=== PATIENT | female | born 1945 | race African-American/Black ===

== ENCOUNTER 2020-06-10 12:56 | Outpatient (REF) | payer OTHER, SELFPAY ==
[2020-06-17 15:23] LABS: HPV 16 RNA NOT DETECTED (NOT DETECTED); HPV mRNA E6/E7 rflx Detected (Not Detected)
== END 2020-06-10 12:57 | disposition home or self-care (01) ==
LOC: HO.LAB 12:56
PROVIDERS: PCP Family Medicine; Visit Provider Obstetrics & Gynecology
DX: Z01.419 Encounter for gynecological examination (general) (routine) without abnormal findings (principal); R87.610 Atypical squamous cells of undetermined significance on cytologic smear of cervix (ASC-US); R87.810 Cervical high risk human papillomavirus (HPV) DNA test positive; F17.210 Nicotine dependence, cigarettes, uncomplicated; Z11.51 Encounter for screening for human papillomavirus (HPV)
CPT/HCPCS: 87624; 87625; 88141; 88142

== ENCOUNTER → 2020-07-12 13:11 | Outpatient (REF) | payer OTHER, SELFPAY ==
--- NOTE | 2020-07-12 13:00 | CA_ITS ---
Transthoracic Echocardiogram Patient (Last, First, Middle): Joceline Hogue, Gender: Female Date of : 1945 Age: 74 Procedure Date: 07/12/2020 Procedure Type: Transthoracic Echocardiogram Location: OP Height: 160.02 cm Weight: 63.5 kg BSA: 1.66 m2 Heart Rate: bpm BP: 143 / 80 mmHg Pharmaceutical Physician: PJ Referring MD: Michael Baltazar MD College Archivist: Joe Ayala MD Symptoms: I25.10 ASCDM [id number] Z95.5 STENTED COR ART I10 HTN Study Quality: Good ECG Rhythm: Sinus Conclusions: - 1. Normal LV systolic function with impaired relaxation filling pattern with inferior inferoseptal wall motion abnormality 2. Normal cardiac valvular Doppler 3. Normal RV systolic pressure 4. No pericardial effusion Findings Left Ventricle Normal left ventricular size, thickness, and systolic function. The visually estimated ejection fraction is between 60-65%. Spectral Doppler is indicative of an impaired relaxation filling pattern. E/E prime ratio is between 8 and 15 consistent with indeterminate filling pressures. Wall Motion Rest Echo Findings The basal inferior and basal inferoseptal segments are hypokinetic. All other scored wall segments showed normal motion. Right Ventricle Normal right ventricular cavity size and systolic function. Atria Both atria are normal in size. There is no evidence of interatrial shunt. Aortic Valve There is mild calcification of the aortic valve. There is no aortic valve stenosis. There is no aortic valve regurgitation. Mitral Valve Normal mitral valve structure and function. The posterior mitral leaflet has restricted mobility. There is trace mitral valve regurgitation. There is no mitral valve stenosis. Pulmonic Valve The pulmonic valve was not well visualized. Tricuspid Valve Likely normal tricuspid valve structure and function. There is trace tricuspid valve regurgitation. The right ventricular systolic pressure is normal. The right ventricular systolic pressure is 18 mmHg. Normal right atrial pressure. There is no evidence of pulmonary hypertension. Great Vessels All visible segments of the aorta are normal in size. The pulmonary artery was not well visualized. Venous The inferior vena cava is normal in size and collapses greater than 50% with inspiration. Pericardium/Pleural There is no evidence of pericardial effusion. Prior Study Comparison Changes noted compared to prior study dated: 01/14/2019. Inferior wall motion abnormality noted Measurements 2D Linear Measurements IVSd: 1.30 0.6-0.9/0.6-1.0 cm LVIDd: 4.37 3.9-5.3/4.2-5.9 cm LVIDd Index: 2.63 2.4-3.2/2.2-3.1 cm/m2 LVIDs: 2.93 2.0-3.6 cm LVPWd: 1.17 0.7-1.1 cm Ao Root: 3.10 2.1-3.5 cm LA Diam: 3.50 2.7-3.8/3.0-4.0 cm LAIDs Index: 2.11 1.5-2.3 cm/m2 LV Mass: 246.02 67-162/88-224 g LV Mass Index: 148.21 43-95/49-115 g/m2 LVOT Diam: 2.10 3.0+(-)1.3 cm 2D Systolic Function EF 4C: 66.80 >55% EF 2C: 54.60 >55% EF BiP: 60.90 >55% Mitral Valve MV Pk E: 0.64 MV PK A: 1.13 MV Decel Time: 278.00 E/A: 0.60 E'Lateral: 7.25 E'Medial: 5.13 E/E' Med: 12.50 E/E' Lat: 8.80 PHT: 81.00 MVA PHT: 2.72 Decel [place]: 2.30 Aortic Valve AoV Pk Yovany: 1.25 AoV Pk Grad: 6.00 LVOT LVOT Pk Yovany: 1.02 LVOT Mn Yov[place]: 0.71 LVOT VTI: 0.25 LVOT Pk Grad: 4.00 LVOT Mn Grad: 2.00 LVOT Diam: 2.10 LVOT Area: 3.46 Diastolic Function MV Pk E: 0.64 MV Pk A: 1.13 E/A: 0.60 E'Medial: 5.13 E/E' Med: 12.50 E' Laterial: 7.25 E/E' Lat: 8.80 Tricuspid Valve TR Pk Yovany: 1.91 TR Pk Grad: 15.00 RA Press: 3.00 RVSP: 18.00 Great Vessels Aorta Ao Root-2D: 3.10 2.0-3.7 cm Ao Asc: 3.50 2.1-3.4 cm Updated in Other Vendor System with Status of Final Joe Jamie MD electronically signed on 07/13/2020 9:30:58 AM with status of Final
== END ==
LOC: HO.CARD 13:11
PROVIDERS: PCP Family Medicine; Visit Provider Internal Medicine
DX: I25.10 Atherosclerotic heart disease of native coronary artery without angina pectoris (principal); I21.19 ST elevation (STEMI) myocardial infarction involving other coronary artery of inferior wall; I10 Essential (primary) hypertension; Z95.5 Presence of coronary angioplasty implant and graft
CPT/HCPCS: 93306

== ENCOUNTER → 2020-07-27 12:46 | Outpatient (BNVA) | payer OTHER, SELFPAY | PROVIDERS: PCP Family Medicine; Visit Provider Internal Medicine | DX: I25.10 Atherosclerotic heart disease of native coronary artery without angina pectoris (principal); I25.2 Old myocardial infarction; I10 Essential (primary) hypertension; E78.5 Hyperlipidemia, unspecified; E11.8 Type 2 diabetes mellitus with unspecified complications | CPT/HCPCS: 93005; 99212 ==

== ENCOUNTER 2020-08-31 13:35 | Outpatient (REF) | payer MEDICARE, SELFPAY ==
--- NOTE | ~2020-08-31 | MM_ITS ---
EXAMINATION: MM SCREENING DIGITAL BREAST TOMOSYNTHESIS, BILATERAL CLINICAL INFORMATION: Screening. Asymptomatic. The lifetime risk of breast cancer based on the Tyrer-Cuzick Model is 2.5%. COMPARISON: Mammography: August 27, 2018 and studies dating back to January 19, 2011 TECHNIQUE: Digital breast tomosynthesis is performed in both the craniocaudal and mediolateral oblique views along with computer-aided detection (CAD). Synthesized 2D images are generated from the tomosynthesis. FINDINGS: There are scattered areas of fibroglandular density (ACR BI-RADS breast composition Category b). There are no significant masses, abnormal calcifications, or other abnormalities. MM/MM tomosynthesis screening BI IMPRESSION: There are no significant changes from prior study. ASSESSMENT: BI-RADS 1: Negative RECOMMENDATION: Routine annual mammography screening. This patient's information was entered into a reminder system with a target due date for their next mammogram.
--- NOTE | ~2020-08-31 | MM_ITS ---
EXAMINATION: BONE DENSITOMETRY CLINICAL INDICATION: Other specified personal risk factors, not otherwise classified. Screening for osteoporosis. COMPARISON: None (current study represents initial baseline exam). TECHNIQUE: Using a Qoture DXA System (software version: 13.1) manufactured by [employer], dual-energy x-ray absorptiometry was performed of the lumbar spine and left hip. The images are of good technical quality. Summary results are attached. FINDINGS: AP SPINE L1-L3 (excluding L4): The data of L1-L4 has been changed to exclude the L4 vertebral body, because probable degenerative changes at this level may cause overestimation of lumbar spine density. BMD 0.944 g/cm2, Z-score -0.2, T-score -1.9, osteopenia. LEFT FEMUR, NECK: BMD 0.947 g/cm2, Z-score 1.2, T-score -0.7, normal. LEFT FEMUR, TOTAL: BMD 0.939 g/cm2, Z-score 1.1, T-score -0.5, normal. IDENTIFIED RISK FACTORS: Menopause, tobacco use (current smoker). HISTORY OF FRACTURE: None listed. MEDICATIONS: None listed. MM/XR DEXA axial skeleton IMPRESSION: 1. DIAGNOSIS: Osteopenia based on the lowest T-score value of -1.9 in the lumbar spine applying World Health Organization criteria. 2. 10-YEAR FRACTURE RISK PREDICTION, FRAX: Major osteoporotic fracture (clinical spine, forearm, hip or shoulder) 5.0%. Hip fracture 0.9%. 3. Treatment Recommendations: NOF guidelines recommend consideration for treatment in postmenopausal women and men age 50 and older presenting with the following: -A hip or vertebral (clinical or morphometric) fracture. -T-score less than or equal to -2.5 at the femoral neck or spine after appropriate evaluation to exclude secondary causes. -Low bone mass at the hip or spine and a 10-year fracture probability by FRAX of greater than or equal to 3% for hip fracture or greater than or equal to 20% for major osteoporotic fracture based on the [place] adapted WHO algorithm. 4. Other Recommendations: All treatment decisions require clinical judgment and consideration of individual patient factors, including patient preferences, comorbidities, previous drug use, risk factors not captured in the FRAX model (e.g. frailty, falls, vitamin D deficiency, increased bone turnover, interval significant decline in bone density) and possible under or overestimation of fracture risk by FRAX. Additional medical evaluation for secondary cause of low bone mineral density may be appropriate. FUTURE SCAN RECOMMENDATION: People with diagnosed cases of osteoporosis or at high risk for fracture should have regular bone mineral density tests. For patients eligible for Medicare, routine testing is allowed once every 2 years. The testing frequency can be increased to one year for patients who have rapidly progressing disease, those who are receiving or discontinuing medical therapy to restore bone mass, or have additional risk factors.
== END 2020-08-31 13:36 | disposition home or self-care (01) ==
LOC: HO.MAMMO 13:35
PROVIDERS: Visit Provider Obstetrics & Gynecology
DX: Z13.820 Encounter for screening for osteoporosis (principal); Z78.0 Asymptomatic menopausal state; F17.200 Nicotine dependence, unspecified, uncomplicated; Z91.89 Other specified personal risk factors, not elsewhere classified; Z12.31 Encounter for screening mammogram for malignant neoplasm of breast
CPT/HCPCS: 77063; 77067; 77080

== ENCOUNTER → 2021-06-12 14:03 | Outpatient (BNVA) | payer MEDICARE, SELFPAY | PROVIDERS: Visit Provider Advanced Practice Midwife | DX: Z12.31 Encounter for screening mammogram for malignant neoplasm of breast (principal); Z12.11 Encounter for screening for malignant neoplasm of colon; Z91.89 Other specified personal risk factors, not elsewhere classified ==

== ENCOUNTER → 2021-07-27 12:53 | Outpatient (BNVA) | payer MEDICARE, SELFPAY | PROVIDERS: PCP Family Medicine; Referring Provider Family Medicine; Visit Provider Internal Medicine | DX: I25.10 Atherosclerotic heart disease of native coronary artery without angina pectoris (principal); I25.2 Old myocardial infarction; E11.8 Type 2 diabetes mellitus with unspecified complications; I10 Essential (primary) hypertension; E78.5 Hyperlipidemia, unspecified | CPT/HCPCS: 93005; 99212 ==

== ENCOUNTER 2022-02-19 13:44 | Outpatient (REF) | payer MEDICARE, SELFPAY ==
[2022-02-20 10:12] LABS: BV Int Neg Control Negative (Negative); BV Int Pos Control Positive (Positive)
== END 2022-02-19 13:45 | disposition home or self-care (01) ==
LOC: HO.LAB 13:44
PROVIDERS: Visit Provider Advanced Practice Midwife
DX: N89.8 Other specified noninflammatory disorders of vagina (principal)
CPT/HCPCS: 87480; 87510; 87660

== ENCOUNTER 2022-03-07 12:44 | Outpatient (REF) | payer MEDICARE, SELFPAY ==
--- NOTE | ~2022-03-07 | MM_ITS ---
EXAMINATION: MM SCREENING DIGITAL BREAST TOMOSYNTHESIS, BILATERAL CLINICAL INFORMATION: Screening. Asymptomatic. The lifetime risk of breast cancer based on the Tyrer-Cuzick Model is 2%. COMPARISON: Mammography: 08/31/2020, 08/27/2018, 10/10/2016 TECHNIQUE: Digital breast tomosynthesis is performed in both the craniocaudal and mediolateral oblique views along with computer-aided detection (CAD). Synthesized 2D images are generated from the tomosynthesis. FINDINGS: There are scattered areas of fibroglandular density (ACR BI-RADS breast composition Category b). There are no significant masses, abnormal calcifications, or other abnormalities. Parenchymal pattern is similar to prior studies. There is no developing density or architectural abnormality. The axilla and skin contours are unremarkable. No significant changes. MM/MM tomosynthesis screening BI IMPRESSION: No mammographic evidence of malignancy. ASSESSMENT: BI-RADS 1: Negative RECOMMENDATION: Routine annual mammography screening. This patient's information was entered into a reminder system with a target due date for their next mammogram.
== END 2022-03-07 12:45 | disposition home or self-care (01) ==
LOC: HO.MAMMO 12:44
PROVIDERS: PCP Family Medicine; Visit Provider Advanced Practice Midwife
DX: Z12.31 Encounter for screening mammogram for malignant neoplasm of breast (principal)
CPT/HCPCS: 77063; 77067

== ENCOUNTER → 2022-07-26 13:28 | Outpatient (BNVA) | payer MEDICARE, SELFPAY | PROVIDERS: PCP Family Medicine; Visit Provider Internal Medicine | DX: I25.10 Atherosclerotic heart disease of native coronary artery without angina pectoris (principal); I25.2 Old myocardial infarction; I10 Essential (primary) hypertension; E78.5 Hyperlipidemia, unspecified; E11.8 Type 2 diabetes mellitus with unspecified complications; F17.200 Nicotine dependence, unspecified, uncomplicated; Z71.6 Tobacco abuse counseling | CPT/HCPCS: 93005; 99212 ==

== ENCOUNTER 2023-01-11 08:56 | Outpatient (REF) | payer MEDICARE, SELFPAY ==
[2023-01-11 11:25] LABS: MANUAL DIFF FLAG NO
[2023-01-11 11:41] LABS: Basophils Absolute Auto 0.1 X10*3/uL (0.0-0.2); Basophils Percent Auto 0.7 % (0-2); Eosinophils Absolute Auto 0.3 X10*3/uL (0.0-0.4); Eosinophils Percent Auto 4.1 % (0-4); Hematocrit 42.8 % (37.0-47.0); Hemoglobin 13.2 g/dl (12.0-16.0); Imm Gran Abs Auto 0.02 X10*3/uL (0.00-0.03); Imm Gran Pct Auto 0.2 % (0.0-0.4); Lymphocytes Absolute Auto 1.9 X10*3/uL (1.2-4.9); Lymphocytes Percent Auto 22.2 % (20-40); Mean Corpuscular HGB Conc 30.8 g/dl (31.0-35.0); Mean Corpuscular Hemoglobin 26.8 pg (27.0-33.0); Mean Corpuscular Volume 86.8 fL (80.0-98.0); Mean Platelet Volume 10.7 fL (9.4-12.3); Monocytes Absolute Auto 0.6 X10*3/uL (0.1-1.2); Monocytes Percent Auto 7.1 % (2-11); Neutrophils Absolute Auto 5.5 x10*3/uL (2.0-8.3); Neutrophils Percent Auto 65.7 % (45-73); Platelet Count 226 X10*3/uL (160-400); Red Blood Count 4.93 X10*6/uL (4.20-5.50); Red Cell Distribution Width 13.3 % (11.0-16.0); White Blood Count 8.4 X10*3/uL (4.8-10.8)
[2023-01-11 12:05] LABS: Creatinine Urine 42.19 mg/dL; Microalbum/Creatinine Ratio Ur 130.3 ug/mg cr
[2023-01-11 12:52] LABS: Cholesterol 95 mg/dL; HDL Cholesterol 32 mg/dL; LDL Cholesterol Calculated 39 mg/dl; Triglycerides 124 mg/dL
[2023-01-11 13:05] LABS: Alanine Aminotransferase 16 U/L (0-31); Albumin Level 3.7 g/dL (3.5-5.0); Alkaline Phosphatase 64 U/L (39-117); Anion Gap 11 (12-20); Aspartate Amino Transferase 18 U/L (5-31); Bilirubin Total 0.5 mg/dL (0.0-1.0); Blood Urea Nitrogen 14 mg/dL (9-16); Calcium 9.5 mg/dL (8.4-10.2); Carbon Dioxide 27 mmol/L (22-29); Chloride 106 mmol/L (96-108); Estimated Glomerular Filt Rate > 60; Folate 11.9 ng/mL (> or = 4.0); Glucose Random 157 mg/dL (60-115); Potassium 3.9 mmol/L (3.3-5.1); Sodium 140 mmol/L (135-145); Total Protein 7.2 g/dL (6.5-8.0); Vitamin B12 322 pg/mL (200-900)
[2023-01-11 13:08] LABS: TSH reflex Free T4 1.04 uIU/mL (0.32-4.0)
[2023-01-11 13:43] LABS: Reflex LDLD? No
== END 2023-01-11 08:57 | disposition home or self-care (01) ==
LOC: HO.HHCL 08:56
PROVIDERS: Visit Provider Family Medicine
DX: Z00.00 Encounter for general adult medical examination without abnormal findings (principal); I25.2 Old myocardial infarction; E78.5 Hyperlipidemia, unspecified; E11.65 Type 2 diabetes mellitus with hyperglycemia
CPT/HCPCS: 36415; 80053; 80061; 82043; 82607; 82746; 84443; 85025

== ENCOUNTER 2023-07-25 13:25 | Outpatient (AMB) | payer MEDICARE, SELFPAY ==
--- NOTE | 2023-07-25 13:32 | MHC.OFFVIS ---
Intake Vital Signs 07/25/23 13:35 Height 5 ft 3 in Weight 149 lb 14.629 oz BMI 26.6 BP 146/70 H Blood Pressure Location Lt brachial Position Sitting Pulse 55 Intake Visit Reasons: 1 yr f.up Intake Note: 1 year follow up w/ EKG Messenger Floorperson Required: Yes Messenger Floorperson Language: Tool Room Gear Machine Operator Name: Missy Schaeffer235 Accompanied by: Self / Same As Patient Allergies No Known Allergies Allergy (Verified 07/25/23 13:34) Medication List - Last Reconciled 07/25/23 by Michael Baltazar MD alendronate 70 mg PO QWEEK amlodipine 10 mg PO DAILY aspirin 81 mg PO DAILY cetirizine 5 mg PO DAILY PRN clonidine HCl 0.2 mg PO BID gabapentin 300 mg PO BEDTIME glipizide ER 10 mg PO DAILY lisinopril 40 mg PO DAILY meloxicam 7.5 mg PO DAILY PRN metformin 1,000 mg PO BID metoprolol tartrate 50 mg PO BID rosuvastatin 20 mg PO DAILY HPI HPI Comments History of Present Illness Details Joceline returns for follow-up regarding coronary disease. She has a long history of coronary disease and in 2005, she was admitted to [facility] with inferior STEMI. Underwent right coronary artery stenting. She also had some disease in circumflex. Generally, she is doing fine. No complaints like angina or shortness of breath or in fact anything cardiac sounding. Blood pressure seems to be on higher side. 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 Mother No problems noted. Social History Household Members: None Housing: House Alcohol intake: never Patient Tobacco Use Status: Current everyday Tobacco user Cigarettes Per Day: 3 Years Smoked: 10 +/- Sexual orientation: Straight/Heterosexual Gender identity: Female Female Reproductive History Menstrual Age of Menarche: 13 Review of Systems Const Denies weakness ENT Denies dizziness Card Denies chest pain, Denies chest pain with activity, Denies syncope, Denies rapid heart rate, Denies pedal edema, Denies edema, Denies leg edema, Denies lightheadedness, Denies palpitations, Denies dyspnea, Denies dyspnea on exertion and Denies orthopnea Resp Denies cough, Denies dyspnea and Denies dyspnea on exertion GI Denies hematochezia and Denies change in stool character Musc Denies abnormal gait, Denies muscle cramps, Denies muscle weakness, Denies numbness, Denies radiating pain into limb and Denies tingling Neuro Denies abnormal gait, Denies dizziness, Denies syncope, Denies numbness, Denies tingling and Denies weakness Endo Denies palpitations Physical Exam Vital Signs: Last Vital Signs Pulse 55 07/25/23 13:35 BP 146/70 H 07/25/23 13:35 BMI result Body Mass Index 26.6 Const General: comfortable and no acute distress Orientation/consciousness: patient oriented x3 HEENT Other: Unremarkable Head: Yes normal to inspection Neck Neck: Yes normal visual inspection Chest Chest palpation & inspection: normal inspection of the chest Resp Auscultation: clear to auscultation bilaterally Cardio Palpation: normal PMI Heart sounds: S1 normal heart sound present, S2 normal heart sound present, no gallops, no murmurs and no rubs GI Palpation (GI): Soft to palpation Back/Spine/Pelvis Other: unremarkable Skin General skin exam: no rashes or lesions noted Neuro General: patient oriented x3 Extrem General: Yes normal to inspection Psych Mental Status: mental status grossly normal Office Procedures EKG Details: EKG with sinus bradycardia 55/Min; left ventricular hypertrophy by voltage criteria; leftward axis; T inversions inferior leads[place]. [id number], Complete Assessment & Plan Assessment & Plan (1) Atherosclerotic cardiovascular disease: Code(s): I25.10 - Atherosclerotic heart disease of [place] coronary artery without angina pectoris Plan: Stable. No angina. Continue long-term aspirin, beta-blockers and statins. (2) History of inferior wall myocardial infarction: Code(s): I25.2 - Old myocardial infarction Plan: No recent issues. In the last echocardiogram from 2020, preserved LVEF with basal inferior/inferoseptal hypokinesis. (3) Type 2 diabetes mellitus with unspecified complications: Code(s): E11.8 - Type 2 diabetes mellitus with unspecified complications Plan: On glipizide, metformin. (4) Essential hypertension: Code(s): I10 - Essential (primary) hypertension Plan: On amlodipine, lisinopril, metoprolol. Blood pressure is on the higher side. We can add hydrochlorothiazide. Check labs few days after starting the medication. Discussed with patient about that. (5) Other and unspecified hyperlipidemia: Code(s): E78.5 - Hyperlipidemia, unspecified Plan: Most recent LDL 39 mg/dL. Triglycerides 125 mg/dL. On statins. Orders: Orders Basic Metabolic Panel Today I10 - Essential (primary) hypertension Medications: New hydrochlorothiazide 25 mg PO DAILY 90 tabs 3RF Coding Level of Care Code Est Pt Level 4 (77160) Diagnoses Atherosclerotic cardiovascular disease I25.10 History of inferior wall myocardial infarction I25.2 Type 2 diabetes mellitus with unspecified complications E11.8 Essential hypertension I10 Other and unspecified hyperlipidemia E78.5 CPT Codes EKG - CPT: 94791-[id number], Complete ([id number])
[2023-07-25 13:35] VITALS: BP 146/70; PULSE 55; BMI 26.6
== END 2023-07-25 13:54 | disposition home or self-care (01) ==
PROVIDERS: Visit Provider Internal Medicine
DX: I25.10 Atherosclerotic heart disease of native coronary artery without angina pectoris (principal); I25.2 Old myocardial infarction; E11.8 Type 2 diabetes mellitus with unspecified complications; I10 Essential (primary) hypertension; E78.5 Hyperlipidemia, unspecified
CPT/HCPCS: 93010; 99214

== ENCOUNTER → 2023-07-25 13:25 | Outpatient (BNVA) | payer MEDICARE, SELFPAY | PROVIDERS: Visit Provider Internal Medicine | DX: I25.10 Atherosclerotic heart disease of native coronary artery without angina pectoris (principal); I25.2 Old myocardial infarction; I10 Essential (primary) hypertension; E11.8 Type 2 diabetes mellitus with unspecified complications; E78.5 Hyperlipidemia, unspecified | CPT/HCPCS: 93005; 99212 ==

== ENCOUNTER 2023-11-13 12:56 | Outpatient (REF) | payer OTHER, SELFPAY | END 2023-11-13 12:57 | disposition home or self-care (01) | LOC: HO.MAMMO 12:56 | PROVIDERS: PCP Family Medicine; Visit Provider Family Medicine | DX: Z12.31 Encounter for screening mammogram for malignant neoplasm of breast (principal) | CPT/HCPCS: 77063; 77067 ==

== ENCOUNTER → 2023-11-13 13:00 | Outpatient (BNV) | payer OTHER, SELFPAY | PROVIDERS: PCP Family Medicine; Visit Provider Radiology Diagnostic Radiology | DX: Z12.31 Encounter for screening mammogram for malignant neoplasm of breast (principal) | CPT/HCPCS: 77063; 77067 ==

== ENCOUNTER 2024-02-03 11:41 | Outpatient (REF) | payer OTHER, SELFPAY ==
[2024-02-03 13:48] LABS: Alanine Aminotransferase 17 U/L (0-31); Albumin Level 4.2 g/dL (3.5-5.0); Alkaline Phosphatase 72 U/L (39-117); Anion Gap 11 (12-20); Aspartate Amino Transferase 20 U/L (5-31); Bilirubin Total 0.2 mg/dL (0.0-1.0); Blood Urea Nitrogen 20 mg/dL (9-16); Calcium 9.3 mg/dL (8.4-10.2); Carbon Dioxide 27 mmol/L (22-29); Chloride 103 mmol/L (96-108); Cholesterol 92 mg/dL (<200); Estimated Glomerular Filt Rate > 60; Glucose Random 161 mg/dL (60-115); HDL Cholesterol 29 mg/dL (>40); LDL Cholesterol Calculated 24 mg/dL (<100); Potassium 3.8 mmol/L (3.3-5.1); Sodium 137 mmol/L (135-145); Total Protein 7.6 g/dL (6.5-8.0); Triglycerides 196 mg/dL (<150)
[2024-02-03 13:59] LABS: Creatinine Urine 46.97 mg/dL; Microalbum/Creatinine Ratio Ur 36.1 ug/mg cr (<30)
[2024-02-03 14:06] LABS: TSH reflex Free T4 1.09 uIU/mL (0.32-4.0)
[2024-02-03 14:09] LABS: Vitamin B12 339 pg/mL (200-900)
[2024-02-03 14:20] LABS: Reflex LDLD? No
== END 2024-02-03 11:42 | disposition home or self-care (01) ==
LOC: HO.HHCL 11:41
PROVIDERS: Visit Provider Family Medicine
DX: E11.65 Type 2 diabetes mellitus with hyperglycemia (principal); I10 Essential (primary) hypertension
CPT/HCPCS: 36415; 80053; 80061; 82043; 82570; 82607; 82746; 84443

== ENCOUNTER 2024-06-29 14:01 | Outpatient (REF) | payer OTHER, SELFPAY ==
[2024-06-29 16:32] LABS: Alanine Aminotransferase 13 U/L (0-31); Alkaline Phosphatase 79 U/L (39-117); Anion Gap 10 (12-20); Aspartate Amino Transferase 23 U/L (5-31); Bilirubin Total 0.2 mg/dL (0.0-1.0); Blood Urea Nitrogen 16 mg/dL (9-16); Calcium 9.1 mg/dL (8.4-10.2); Carbon Dioxide 29 mmol/L (22-29); Chloride 105 mmol/L (96-108); Cholesterol 95 mg/dL (<200); Estimated Glomerular Filt Rate > 60; Glucose Random 204 mg/dL (60-115); HDL Cholesterol 28 mg/dL (>40); LDL Cholesterol Calculated 37 mg/dL (<100); Potassium 3.9 mmol/L (3.3-5.1); Sodium 140 mmol/L (135-145); Total Protein 7.3 g/dL (6.5-8.0); Triglycerides 151 mg/dL (<150)
[2024-06-29 17:05] LABS: Folate 12.1 ng/mL (> or = 4.0); Vitamin B12 345 pg/mL (200-900)
[2024-06-29 17:20] LABS: Reflex LDLD? No
[2024-06-29 18:11] LABS: Creatinine Urine 68.96 mg/dL; Microalbum/Creatinine Ratio Ur 304.5 ug/mg cr (<30)
== END 2024-06-29 14:02 | disposition home or self-care (01) ==
LOC: HO.HHCL 14:01
PROVIDERS: Visit Provider Family Medicine
DX: E11.65 Type 2 diabetes mellitus with hyperglycemia (principal); E78.5 Hyperlipidemia, unspecified; I10 Essential (primary) hypertension
CPT/HCPCS: 36415; 80053; 80061; 82043; 82570; 82607; 82746

== ENCOUNTER 2024-11-10 11:16 | Outpatient (AMB) | payer OTHER, SELFPAY ==
[2024-11-10 11:26] VITALS: BP 120/68; PULSE 47; BMI 24.6
--- NOTE | 2024-11-10 11:26 | A.OFFVIS_ITS ---
Vital Signs 11/10/24 11:26 Height 5 ft 3 in Weight 138 lb 14.259 oz BMI 24.6 BP 120/68 Blood Pressure Location Lt brachial Position Sitting Pulse 47 L Pulse Source Monitor Intake Visit Reasons: Follow up Pick Up Driver Required: Yes Pick Up Driver Name: TAVARES [id number] Allergies No Known Allergies Allergy (Verified 07/25/23 13:34) Medication List - Last Reconciled 11/10/24 by Michael Baltazar MD alendronate 70 mg PO QWEEK amlodipine 10 mg PO DAILY aspirin 81 mg PO DAILY cetirizine 5 mg PO DAILY PRN clonidine HCl 0.2 mg PO BID gabapentin 300 mg PO BEDTIME glipizide ER 10 mg PO DAILY hydrochlorothiazide 25 mg PO DAILY lisinopril 40 mg PO DAILY meloxicam 7.5 mg PO DAILY PRN metformin 1,000 mg PO BID metoprolol tartrate 50 mg PO BID rosuvastatin 20 mg PO DAILY HPI Comments Details: Joceline returns for follow-up regarding coronary disease. She has a long history of coronary disease and in 2005, she was admitted to [facility] with inferior STEMI. Underwent right coronary artery stenting. She also had some disease in circumflex. Since last seen, she states she is feeling good. She does not have any clear- cut symptoms like angina. Otherwise getting along okay. Blood pressure is normal today but previously had been up and down. 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 Mother No problems noted. Social History Household Members: None Housing: House Alcohol intake: never Patient Tobacco Use Status: Current everyday Tobacco user Cigarettes Per Day: 3 Years Smoked: 10 +/- Sexual orientation: Straight/Heterosexual Gender identity: Female Female Reproductive History Menstrual Age of Menarche: 13 Review of Systems Const Denies weakness ENT Reports no additional complaints and Denies dizziness Card Reports no additional complaints, Denies chest pain, Denies chest pain with activity, Denies syncope, Denies rapid heart rate, Denies pedal edema, Denies edema, Denies leg edema, Denies lightheadedness, Denies palpitations, Denies dyspnea, Denies dyspnea on exertion and Denies orthopnea Resp Denies cough, Denies dyspnea and Denies dyspnea on exertion GI Denies hematochezia and Denies change in stool character Musc Denies abnormal gait, Reports myalgias, Denies muscle cramps, Denies muscle weakness, Denies numbness, Denies radiating pain into limb and Denies tingling Neuro Denies abnormal gait, Denies dizziness, Denies syncope, Denies numbness, Denies tingling and Denies weakness Endo Denies palpitations Physical Exam Vital Signs: Last Vital Signs Pulse 47 L 11/10/24 11:26 BP 120/68 11/10/24 11:26 BMI result Body Mass Index 24.6 Const General: comfortable and no acute distress Orientation/consciousness: patient oriented x3 HEENT Other: Unremarkable Head: Yes normal to inspection Neck Neck: Yes normal visual inspection Chest Chest palpation & inspection: normal inspection of the chest Resp Auscultation: clear to auscultation bilaterally Cardio Palpation: normal PMI Heart sounds: S1 normal heart sound present, S2 normal heart sound present, no gallops, no murmurs and no rubs GI Palpation (GI): Soft to palpation Back/Spine/Pelvis Other: unremarkable Skin General skin exam: no rashes or lesions noted Neuro General: patient oriented x3 Extrem General: Yes normal to inspection Psych Mental Status: mental status grossly normal Office Procedures EKG Details: EKG today shows sinus bradycardia at 47/Min; leftward axis; inferior and anterolateral T inversions. [id number], Complete Assessment & Plan Assessment & Plan (1) Atherosclerotic cardiovascular disease: Code(s): I25.10 - Atherosclerotic heart disease of [place] coronary artery without angina pectoris Category: Medical Plan: She does not have any clear-cut angina but the EKGs showing anterolateral T inversions much more prominent than in the past. This could also be from hypertension. Findings discussed with patient. Recommend pursuing further with an echocardiogram and stress test. She will be unlikely to exercise on the treadmill and hence do a pharmacological stress with Lexiscan. Continue long-term aspirin, beta-blockers and statins. (2) History of inferior wall myocardial infarction: Code(s): I25.2 - Old myocardial infarction Category: Medical Plan: No recent issues. In the last echocardiogram from 2020, preserved LVEF with basal inferior/inferoseptal hypokinesis. Repeat imaging as above. (3) Type 2 diabetes mellitus with unspecified complications: Code(s): E11.8 - Type 2 diabetes mellitus with unspecified complications Category: Medical Plan: On glipizide, metformin. No recent hemoglobin A1c. (4) Essential hypertension: Code(s): I10 - Essential (primary) hypertension Category: Medical Plan: On multiple medications including Metoprolol, Lisinopril, Amlodipine, Hydrochlorothiazide. Today's blood pressure seems normal. (5) Other and unspecified hyperlipidemia: Code(s): E78.5 - Hyperlipidemia, unspecified Category: Medical Plan: Most recent LDL 39 mg/dL. Triglycerides 125 mg/dL. On statins. Orders: Orders CA echo transthoracic complete Today I25.10 - Atherosclerotic heart disease of [place] coronary artery without angina pectoris, I25.2 - Old myocardial infarction NM cardiolite stress test Today I25.10 - Atherosclerotic heart disease of [place] coronary artery without angina pectoris, R07.2 - Precordial pain CA lexiscan stress w jc Today I20.9 - Angina pectoris, unspecified, I25.10 - Atherosclerotic heart disease of [place] coronary artery without angina pectoris Coding Level of Care Code Est Pt Level 4 (82449) Complex EM visit Add On G2211 Diagnoses Atherosclerotic cardiovascular disease I25.10 History of inferior wall myocardial infarction I25.2 Type 2 diabetes mellitus with unspecified complications E11.8 Essential hypertension I10 Other and unspecified hyperlipidemia E78.5 CPT Codes EKG - CPT: 84523-[id number], Complete ([id number])
--- OUTSIDE RECORDS SUMMARY | 2024-11-10 12:46 | XMS_ITS | Encounter Summary ---
Author Organization [employer] Address [address] [place] [address] Care Team Providers Care Fabric Worker Supervisor Name Role Phone Aby Ragland MD Primary Care Provider [phone] Nando Baig PharmD Unavailable [phone] Encounter Details Date Type Department Care Team (Late Contact Info) Description 06/11/2022 Abstract [facility] [address] [place] [address] [phone] Aby Ragland MD [address] [place] [address] [phone] Social History Tobacco Use Types Packs/Day Years Used Date Smoking Tobacco: Never Assessed Comments Unknown Sex and Gender Information Value Date Recorded Sex Assigned at Female 04/30/2022 10:14 AM EDT Legal Sex Female 10:14 AM EDT Gender Identity Female 04/30/2022 10:14 AM EDT Sexual Orientation Straight 04/30/2022 10 :14 AM EDT COVID-19 Exposure Response Date Recorded In the last 10 days, have yo u been in contact with someone who was confirmed or suspected to have Coronavirus/COVID-19? No / Unsure 06/11/2022 1:17 PM EST documented as of this encounter Plan of Treatment Upcoming Encounters Date Type Department Care Team (Late st Contact Info) Description 12/08/2024 2:15 PM EDT Office Visit [facility] [address] [place] [address] [phone] Aby Ragland MD [address] [place] [address] [phone] documented as of this encounter Visit Diagnoses Not on filedocumented in this encounter Care Teams Fabric Worker Supervisor Relationship Specialty Start Date End Date Aby Ragland MD [address], [place] [phone] PCP - General Family Medicine 01/15/14 Nando Baig PharmD [address] [place] [address] Pharmacist Internal Medicine 07/24/22 documented as of this encounter
--- OUTSIDE RECORDS SUMMARY | 2024-11-10 12:46 | XMS_ITS | Encounter Summary ---
Author Organization [employer] Address [address] [facility] 7[address] [place] [address] Care Team Providers Care Voice Over Artist Name Role Phone Aby Ragland MD Primary Care Provider [phone] Nando Baig PharmD Unavailable [phone] Reason for Visit * Reason Comments Med Refill Encounter Details Date Type Department Care Team (Late st Contact Info) Description 02/15/2023 Refill [facility] MEDICINE [address] [place], [place] [phone] Andres Mancuso MD [address] [place], [place] [phone] Primary osteoarthritis involving multiple joints Social History Tobacco Use Types Packs/Day Years Used Date Smoking Tobacco: Every Day Cigarettes 0.3 5.4 Started: 2020 Passive Smoke Exposure: Current Smokeless Tobacco: Never Alcohol Use Standard Drinks/Week Comments Not Currently 0 (1 standard drink = 0.6 oz pur e alcohol) Comments Unknown Sex and Gender Information Value Date Recorded Sex Assigned at Female 04/30/2022 10:14 AM EDT Legal Sex Female 10:14 AM EDT Gender Identity Female 04/30/2022 10:14 AM EDT Sexual Orientation Straight 04/30/2022 10 :14 AM EDT documented as of this encounter Plan of Treatment Upcoming Encounters Date Type Department Care Team (Late st Contact Info) Description 12/08/2024 2:15 PM EDT Office Visit [facility] MED[facility]INE [address] [place], [place] [phone] Aby Ragland MD [address] [place], [place] [phone] documented as of this encounter Goals Goal Patient Goal Type Associated Problems Recent Progress Patient-Stated? Author Blood Pressure < 140/90 Blood Pressure 140/70( 025 1:53 PM EDT) No Nando Baig, PharmRenae documented as of this encounter Visit Diagnoses Diagnosis Primary osteoarthritis involving multiple joints documented in this encounter Care Teams Voice Over Artist Relationship Specialty Start Date End Date Aby Ragland MD [address] [place] [address] PCP - General Family Medicine 01/15/14 Nando Baig, PharmD [address] [place] [address] Pharmacist Internal Medicine 07/24/22 documented as of this encounter
--- OUTSIDE RECORDS SUMMARY | 2024-11-10 12:46 | XMS_ITS | Encounter Summary ---
Author Organization [email or web address] Address [address] [facility] 7t [place] [address] Care Team Providers Care Director Retirement Name Role Phone Aby Ragland MD Primary Care Provider [phone] Nando Baig PharmD Unavailable [phone] Reason for Visit * Reason Comments Med Refill Encounter Details Date Type Department Care Team ([facility] st Contact Info) Description 07/16/[address] [facility] MEDICINE [address] [place], [place] [phone] Aby Ragland MD [address] [place], [place] [phone] Social History Tobacco Use Types Packs/Day Years Used Date Smoking Tobacco: Every Day Cigarettes 0.3 5.4 Started: 2020 Passive Smoke Exposure: Current Smokeless Tobacco: Never Alcohol Use Standard Drinks/Week Comments Not Currently 0 (1 standard drink = 0.6 oz pur e alcohol) Alcohol Answer Date Recorded Frequency of Alcohol Consumption Not on file 02/03/2024 Average Number of Drinks Not on file 024 Frequency of Binge Drinking Not on file 10/2023 Score 0 02/03/2024 Depression Answer Date Recorded Patient Health Questionnaire-9 Score 8 06/29/2024 Patient Health Questionnaire-9 Score 8 06/29/2024 Last PHQ-9: Questionnaire Data Not on file 1 Housing Stability Answer Date Recorded What is your housing situation today? I have barry hernandez 02/03/[address] you li ve. Do you have problems with any of the following? None of the above 02/03/2024 Food Insecurity Answer Date Recorded Within the past 12 months, y ou worried that your food would run out before you got money to buy more: Never True 02/03/2024 Within the past 12 months,th e food you bought just didn't last and you didn't have enough money to get more: Never True 10/2023 Transportation Answer Date Recorded In the past 12 months, has l ack of transportation kept you from medical appts, meetings, work or from getting things needed for daily living? No 02/03/2024 Utilities Answer Date Recorded In the past 12 months, has t he [employer], gas, oil or water [employer] threatened to shut off services in your home? No 02/03/2024 Depression Answer Date Recorded Patient Health Questionnaire-2 Score 2 06/29/2024 Internet Access Answer Date Recorded Internet Access Q1 Yes 03/01/2024 Internet Access Q2 Not on file 03/01/2024 Comments Unknown Sex and Gender Information Value [...] Description 12/08/2024 2:15 PM EDT Office Visit [facility] MEDICINE [address] [place] [phone] Aby Ragland MD [address] [place] [address] documented as of this encounter Goals Goal Patient Goal Type Associated Problems Recent Progress Patient-Stated? Author Blood Pressure < 140/90 Blood Pressure 140/70( 025 1:53 PM EDT) No Nando Baig, PharmD documented as of this encounter Visit Diagnoses Not on filedocumented in this encounter Additional Health Concerns Assessment Noted Time PHQ-9 Depression Total Score: 8 06/29/20 24 1:11 PM EST documented as of this encounter Care Teams Director Retirement Relationship Specialty Start Date End Date Aby Ragland MD [address] [place] [address] PCP - General Family Medicine 01/15/14 Nando Baig, PharmD [address] [place] [address] Pharmacist Internal Medicine 07/24/22 documented as of this encounter
--- OUTSIDE RECORDS SUMMARY | 2024-11-10 12:46 | XMS_ITS | Encounter Summary ---
Author Organization [employer] Address [address] [facility] 7t [place] [address] Care Team Providers Care Environmental Services Floor Tech Name Role Phone Aby Ragland MD Primary Care Provider [phone] Nando Baig PharmD Unavailable [phone] Reason for Visit * Reason Onset Date Comments DCF Paperwork 08/30/2022 I called aidan mascorro a request for health status information from [facility]. I asked the pt if she is applying to become a connie scratcher herself, or if she lives in the home of a prospective connie scratcher. She stated that she applying to be her grandchildren's connie scratcher, because she doesn't want them to be placed in a home with strangers. She is requesting that the form be mailed to [facility], once it has been completed, and for a copy to be mailed to her home. Her current address was verified today. Encounter Details Date Type Department Care Team ([facility] Contact Info) Description 08/30/2022 Telephone [facility] MEDICINE [address] [place] [address] Aby Ragland MD [address] [place] [address] [facility] Paperwork (I called regarding a request for health status information from [facility]. I asked the pt if she is applying to become a connie scratcher herself, or if she lives in the home of a prospective connie scratcher. She stated that she applying to be her grandchildren's connie scratcher, because she doesn't want them to be placed in a home with strangers. She is requesting that the form be mailed to [facility], once it has been completed, and for a copy to be mailed to her home. Her current address was verified today.) Social History Tobacco Use Types Packs/Day Years Used Date Smoking Tobacco: Every Day Cigarettes 0.3 5.4 Started: 2019 Smokeless Tobacco: Never Alcohol Use Standard Drinks/Week [...] suspected to have Coronavirus/COVID-19? No / Unsure 08/07/2022 1:00 PM EST documented as of this encounter Plan of Treatment Upcoming Encounters Date Type Department Care Team (Late st Contact Info) Description 12/08/2024 2:15 PM EDT Office Visit [facility] MEDICINE [address] [place] [phone] Aby Ragland MD [address] [place] [phone] documented as of this encounter Goals Goal Patient Goal Type Associated Problems Recent Progress Patient-Stated? Author Blood Pressure < 140/90 Blood Pressure 140/70( 025 1:53 PM EDT) No Nando Baig, Nabor documented as of this encounter Visit Diagnoses Not on filedocumented in this encounter Care Teams Environmental Services Floor Tech Relationship Specialty Start Date End Date Aby Ragland MD [address] [place] [phone] PCP - General Family Medicine 01/15/14 Nando Baig, Nabor [address] [place] [phone] Pharmacist Internal Medicine 07/24/22 documented as of this encounter
--- OUTSIDE RECORDS SUMMARY | 2024-11-10 12:46 | XMS_ITS | Encounter Summary ---
Author Organization [employer] Address [address] [facility] 7t [place] [address] Care Team Providers Care Diving Supervisor Name Role Phone Aby Ragland MD Primary Care Provider [phone] Nando Baig PharmD Unavailable [phone] Encounter Details Date Type Department Care Team (Late st Contact Info) Description 06/10/2022 Abstract [facility] MEDICINE [address] [place] [address] Aby Ragland MD [address] [place] [address] Social History Tobacco Use Types Packs/Day Years [...] PM EST documented as of this encounter Miscellaneous Notes * Assessment & Plan Note - Aby Ragland MD - 06/10/2022 12:23 PM ESTAssociated Problem(s): Dyslipidemia ?? Current medication: Rosuvastatin 10 mg at bedtime ?? Lipid profile: 12/05/21 TC 98; TG 187; HDL 31; LDL 41 ?? Hx simvastatin intolerance ?? Pt had not been taking it as prescribed, yet has low LDL. Advised to improve adherence. ?? Continue working on lifestyle modifications * Assessment & Plan Note - Aby Ragland MD - 06/10/2022 12:21 PM ESTAssociated Problem(s): ASCUS with positive high risk HPV cervical ?? Followed by [facility] OPERATOR RECEPTIONIST ?? 05/15/18 Colposcopy with Bx. Cytology report OMAR-I. ?? PAP on 06/09/19 - LSIL with positive high-risk HPV ?? PAP on 06/10/2020 - ASCUS with positive high-risk HPV (Positive E6/E7, negative 16, 18/45) ?? Seen by SWITCHBOARD OPERATOR RECEPTIONIST on 02/19/22, but did not have a Pap Smear. * Assessment & Plan Note - Aby Ragland MD - 06/10/2022 12:15 PM ESTAssociated Problem(s): Essential hypertension ?? Goal BP < 140/90 per JNC-8 guideline, Goal SBP < 130 per ACC/AHA guideline. ?? Renal artery doppler in Mar 2014, left renal artery < 60% stenosis. ?? Continue clonidine 0.2 mg qhs - will need to check adherence ?? Continue lisinopril 40 mg daily. ?? Continue amlodipine 10 mg daily. ?? Continue metoprolol tartrate 50 mg bid. ?? Importance of low-sodium diet and regular moderate physical activity discussed. ?? Work on smoking cessation * Assessment & Plan Note - Aby Ragland MD - 06/10/2022 12:09 PM ESTAssociated Problem(s): Ischemic heart disease ?? Followed by, Dr. Baltazar, [facility], last appt on 07/27/21 ?? Last echo on 07/12/20 LVEF 60-65% ?? 12/09/18 venous study - gross R GSV insufficiency, segmental L GSV incompetence ?? 12/09/18 LOUIE - no arterial disease ?? 01/14/19 Normal LV systolic fxn with EF 55-60%, impaired relaxation, mild LA enlargement ?? Continue current medications, ACEI, BB, and ASA ?? Work on risk factor management by lifestyle modifications, especially smoking cessation * Assessment & Plan Note - Aby Ragland MD - 06/10/2022 12:07 PM ESTAssociated Problem(s): Type 2 diabetes mellitus (CMS/[facility]) ?? A1C % on , 8.6% on 03/26/22 ?? Encouraged to improve glycemic control by lifestyle modification. ?? Improve adherence to SMBG. ?? Continue glipizide 10 mg bid, consider tapering down to 5 mg daily. ?? Continue metformin ER 1000 mg bid. ?? Treatment Hx: Tried Farxiga 5mg in October 2021, but pt developed vaginitis (BV and candidiasis) andself-discontinued. ?? Last eye exam: 05/2019 ?? Last foot exam: 11/20/21, decreased sensation of right foot and poor circulation of right foot ?? Last microalbumin test: 12/05/21 UACR 46 ?? Last lipid profile: 12/05/21 TC 98; TG 187; HDL 31; LDL 41 documented in this encounter Plan of Treatment Upcoming Encounters Date Type Department Care Team (Late st Contact Info) Description 12/08/2024 2:15 PM EDT Office Visit [facility] MEDICINE [address] [place] [address] Aby Ragland MD [address] [place] [address] documented as of this encounter Visit Diagnoses Not on filedocumented in this encounter Care Teams Diving Supervisor Relationship Specialty Start Date End Date Aby Ragland MD [address] [place] [address] PCP - General Family Medicine 01/15/14 Nando Baig, AbhishekD [address] [place] [phone] Pharmacist Internal Medicine 07/24/22 documented as of this encounter
--- OUTSIDE RECORDS SUMMARY | 2024-11-10 12:46 | XMS_ITS | Clinical Summary ---
Author Organization [employer] Address [address] [facility] [address] [place] [address] Care Team Providers Care Die Cutter Operator Name Role Phone Aby Ragland MD Primary Care Provider [phone] Nando Baig PharmD Unavailable [phone] Allergies Active Allergy Reactions Criticality Noted Date Comments Simvastatin 08/30/2014 Tolerating rosuvastatin Medications acetaminophen (Tylenol) 500 MG tablet Take 2 tablets by mouth every 8 (eight) hours. 11/21/19 22 Active cloNIDine (Catapres) 0.2 MG tablet take 1 tablet (0.2MG) by oral route twice a day 08/03/19 22 Active omeprazole OTC (PriLOSEC OTC) 20 MG EC tablet Take 1 tablet by mouth in the morning. 07/15/19 19 Active Blood Glucose Monitoring Suppl (FreeStyle Lite) w/Device kitIndications:T ype 2 diabetes mellitus with hyperglycemia, without long-term current use of insulin ([facility]) 1 each in the morning, at noon, and at bedtime. 1 kit 06/11/20 22 Active Blood Pressure Monitor kitIndications:E ssential hypertension 1 each in the morning. 1 kit 06/11/20 22 Active fluticasone (Flonase) 50 MCG/ACT nasal spray spray 1 spray by intranasal route every day in each nostril 16 g 3 12/11/19 23 Active cetirizine (ZyrTEC) 5 MG tablet TAKE 1 TABLET BY MOUTH EVERY DAY NEEDED 90 tablet 1 04/04/20 23 Active rosuvastatin (Crestor) 20 MG tabletIndication s:Ischemic heart disease TAKE 1 TABLET BY MOUTH EVERY DAY 90 tablet 3 08/07/19 24 Active hydroCHLOROthiaz jovany (HYDRODiuril) 25 MG tablet Take 25 mg by mouth Once per day. 10/25/19 24 Active alendronate (Fosamax) 70 MG tabletIndication s:Osteoporosis, unspecified osteoporosis type, unspecified pathological fracture presence take 1 tablet once a week with 6 to 8 oz of water 30 min before first food of day. do not lie down for 30 minutes 4 tablet 11 02/24/20 24 Active glipiZIDE XL (Glucotrol XL) 10 MG 24 hr tabletIndication s:Type 2 diabetes mellitus with hyperglycemia, without long-term current use of insulin ([facility]) TAKE 1 TABLET BY MOUTH TWICE DAILY WITH BREAKFAST AND WITH DINNER 180 tablet 3 03/03/20 24 Active Aspirin Low Dose 81 MG EC tablet TAKE 1 TABLET BY MOUTH EVERY DAY 90 tablet 3 04/10/20 24 Active FREESTYLE LITE test stripIndications :Type 2 diabetes mellitus with hyperglycemia, without long-term current use of insulin ([facility]) USE TO TEST BLOOD SUGAR TWICE DAILY 150 strip 3 04/10/20 24 Active gabapentin (Neurontin) 300 MG capsuleIndicatio ns:Pain TAKE 1 CAPSULE BY MOUTH AT BEDTIME 30 capsule 3 04/10/20 24 Active TRUEplus Lancets 33G misc TEST BLOOD SUGAR TWICE DAILY 100 each 11 05/20/20 24 Active repaglinide (Prandin) 0.5 MG tablet TAKE 1 TABLET BY MOUTH TWICE DAILY 15 TO 30 MINUTES BEFORE A MEAL 180 tablet 05/26/20 24 Active guaiFENesin (Humibid 3) 400 MG tablet Take 1 tablet (400 mg) by mouth every 8 (eight) hours if needed for cough or congestion. 30 tablet 1 06/29/20 24 Active nystatin (Mycostatin) cream Apply topically 2 times daily. 30 g 2 06/29/20 24 025 Active empagliflozin (Jardiance) 10 MG Take 1 tablet (10 mg) by mouth Once per day. 90 tablet 3 06/29/20 24 Active metFORMIN (Glucophage) 1000 MG tablet TAKE 1 TABLET BY MOUTH TWICE DAILY IN THE MORNING AND IN THE EVENING WITH MEALS 180 tablet 3 07/02/19 25 Active metoprolol tartrate (Lopressor) 50 MG tabletIndication s:Essential hypertension TAKE 1 AND 1/2 TABLETS BY MOUTH TWICE DAILY 135 tablet 3 07/14/19 25 Active amLODIPine (Norvasc) 10 MG tabletIndication s:Essential hypertension Take 1 tablet (10 mg) by mouth Once per day. 90 tablet 3 07/14/19 25 Active lisinopril 40 MG tabletIndication s:Essential hypertension TAKE 1 TABLET BY MOUTH ONCE DAILY 90 tablet 3 10/29/19 25 Active lisinopril 40 MG tabletIndication s:Essential hypertension Take 1 tablet (40 mg) by mouth Once per day. 90 tablet 3 10/25/19 24 025 Discontinued Active Problems Problem Noted Date Diagnosed Date Overweight 09/19/2024 Assessment & Plan (09/19/2024 6:29 AM EDT): Continue working on lifestyle modifications. Generic advice as below. Modify for individualized plan that makes most sense to patient. Dietary Recommendations: Fruits, vegetables, whole grains, protein foods, and fat-free or low-fat dairy products are healthy choices. Eat different types of protein foods in your diet. This can include seafood, lean meats, poultry, beans, peas, lentils, nuts, seeds, soy products, and eggs. Limit foods and beverages higher in added sugars, saturated fat, and sodium. Exercise Recommendations: At least 150 minutes of moderate-intensity physical activity per week, or an equivalent combination of moderate- and vigorous-intensity activity Osteopenia 02/02/2024 Assessment & Plan (09/19/2024 6:23 AM EDT): - last DEXA in August 2020. The lowest T-score -1.9 in lumbar spine. - continue alendronate 70 mg weekly - update DEXA, ordered in Jan 2024 Assessment & Plan (02/02/2024 6:32 AM EDT): - last DEXA in August 2020. The lowest T-score -1.9 in lumbar spine. - continue alendronate 70 mg weekly - update DEXA Tobacco dependence 06/11/2022 Assessment & Plan (09/15/2024 9:02 AM EDT): Discussed about importance of smoking cessation. Pt declines lung cancer screening CT Assessment & Plan (07/06/2024 5:14 AM EST): Discussed about importance of smoking cessation. Pt declines lung cancer screening CT Assessment & Plan (02/03/2024 11:39 AM EDT): Discussed about importance of smoking cessation. Pt declines lung cancer screening CT Assessment & Plan (06/20/2023 5:33 AM EST): Discussed about importance of smoking cessation. Pt declines lung cancer screening CT Assessment & Plan (04/03/2023 4:18 AM EDT): Discussed about importance of smoking cessation. Pt declines lung cancer screening CT Assessment & Plan (12/18/2022 9:15 AM EDT): Discussed about importance of smoking cessation. Pt declines lung cancer screening CT Type 2 diabetes mellitus 06/10/2022 Assessment & Plan (09/19/2024 6:26 AM EDT): A1C 9.0% on 09/15/24, slightly worsened from 8.8% on 06/19/24 Encouraged to improve glycemic control by lifestyle modification. Improve adherence to SMBG and medications. Continue glipizide 10 mg bid Continue metformin ER 1000 mg bid. Continue repaglinide 0.5mg daily Continue empagliflozin Patient declines injectable medication. Consider decreasing glipizide or combining some medications once her glycemic control improves and stabilizes Treatment Hx: Tried dapagliflozin 5mg in October 2021, but pt developed vaginitis (BV and candidiasis) and self-discontinued. Last eye exam: 11/04/23 [facility] Last foot exam: 09/15/24, decreased sensation of right foot and poor circulation of right foot Last microalbumin test: 02/03/24, microalbuminuria Last lipid profile: 02/03/24 Assessment & Plan (07/06/2024 5:13 AM EST): A1C 8.8% on 06/29/24, slightly worsened from 8.4% on 02/03/24 Encouraged to improve glycemic control by lifestyle modification. Improve adherence to SMBG. Continue glipizide 10 mg bid Continue metformin ER 1000 mg bid. Continue repaglinide 0.5mg daily Add empagliflozin Patient declines injectable medication. Consider decreasing glipizide or combining some medications once her glycemic control improves and stabilizes Treatment Hx: Tried dapagliflozin 5mg in October 2021, but pt developed vaginitis (BV and candidiasis) and self-discontinued. Last eye exam: 11/04/23 [facility] Last foot exam: 12/10/22, decreased sensation of right foot and poor circulation of right foot Last microalbumin test: 02/03/24, microalbuminuria Last lipid profile: 02/03/24 Assessment & Plan (02/05/2024 6:05 PM EDT): A1C 8.4% on 02/03/24, slightly worsened from 8.1% on 03/12/23 Encouraged to improve glycemic control by lifestyle modification. Improve adherence to SMBG. Continue glipizide 10 mg bid Continue metformin ER 1000 mg bid. Continue repaglinide 0.5mg daily Treatment Hx: Tried dapagliflozin 5mg in October 2021, but pt developed vaginitis (BV and candidiasis) and self-discontinued. Last eye exam: 04/19/22 [facility] Last foot exam: 12/10/22, decreased sensation of right foot and poor circulation of right foot Last microalbumin test: 01/11/23 UACR 130.3 Last lipid profile: 01/11/23 - TC 99 ; TG 124 ; HDL 32 ; LDL 39 Assessment & Plan (06/20/2023 5:33 AM EST): ? ? A1C 8.1% on 03/12/23, improved from 8.4% on 12/10/22 ? ? Encouraged to improve glycemic control by lifestyle modification. ? ? Improve adherence to SMBG. ? ? Continue glipizide 10 mg bid ? ? Continue metformin ER 1000 mg bid. ?? Continue repaglinide 0.5mg daily ? ? Treatment Hx: Tried dapagliflozin 5mg in October 2021, but pt developed vaginitis (BV and candidiasis) and self-discontinued. ? ? Last eye exam: 04/19/22 [facility] ? ? Last foot exam: 12/10/22, decreased sensation of right foot and poor circulation of right foot ? ? Last microalbumin test: 01/11/23 UACR 130.3 ? ? Last lipid profile: 01/11/23 - TC 99 ; TG 124 ; HDL 32 ; LDL 39 Assessment & Plan (04/03/2023 4:18 AM EDT): ? ? A1C 8.1% on 03/12/23, improved from 8.4% on 12/10/22 ? ? Encouraged to improve glycemic control by lifestyle modification. ? ? Improve adherence to SMBG. ? ? Continue glipizide 10 mg bid ? ? Continue metformin ER 1000 mg bid. ?? Continue repaglinide 0.5mg daily ? ? Treatment Hx: Tried dapagliflozin 5mg in October 2021, but pt developed vaginitis (BV and candidiasis) and self-discontinued. ? ? Last eye exam: 04/19/22 [facility] ? ? Last foot exam: 12/10/22, decreased sensation of right foot and poor circulation of right foot ? ? Last microalbumin test: 01/11/23 UACR 130.3 ? ? Last lipid profile: 01/11/23 - TC 99 ; TG 124 ; HDL 32 ; LDL 39 Assessment & Plan (12/10/2022 2:08 PM EDT): ? ? A1C 8.4% on 12/10/22, improving from 9% on 06/11/22 ? ? Encouraged to improve glycemic control by lifestyle modification. ? ? Improve adherence to SMBG. ? ? Continue glipizide 10 mg bid ? ? Continue metformin ER 1000 mg bid. ?? Continue Prandin 0.5mg daily ? ? Treatment Hx: Tried Farxiga 5mg in October 2021, but pt developed vaginitis (BV and candidiasis) and self-discontinued. ? ? Last eye exam: 04/19/22 [facility] ? ? Last foot exam: 12/10/22, decreased sensation of right foot and poor circulation of right foot ? ? Last microalbumin test: 12/05/21 UACR 46 ? ? Last lipid profile: 12/05/21 TC 98; TG 187; HDL 31; LDL 41 Assessment & Plan (06/15/2022 10:11 AM EST): ? ? A1C 9% on 06/11/22 today worsened from 8.6% on 03/26/22 ? ? Encouraged to improve glycemic control by lifestyle modification. ? ? Improve adherence to SMBG. ? ? Continue glipizide 10 mg bid ? ? Continue metformin ER 1000 mg bid. ? ? Treatment Hx: Tried Farxiga 5mg in October 2021, but pt developed vaginitis (BV and candidiasis) and self-discontinued. ? ? Last eye exam: 04/19/22 [facility] ? ? Last foot exam: 11/20/21, decreased sensation of right foot and poor circulation of right foot ? ? Last microalbumin test: 12/05/21 UACR 46 ? ? Last lipid profile: 12/05/21 TC 98; TG 187; HDL 31; LDL 41 Assessment & Plan (06/10/2022 12:17 PM EST): ?? A1C % on , 8.6% on 03/26/22 ?? Encouraged to improve glycemic control by lifestyle modification. ?? Improve adherence to SMBG. ?? Continue glipizide 10 mg bid, consider tapering down to 5 mg daily. ?? Continue metformin ER 1000 mg bid. ?? Treatment Hx: Tried Farxiga 5mg in October 2021, but pt developed vaginitis (BV and candidiasis) and self-discontinued. ?? Last eye exam: 05/2019 ?? Last foot exam: 11/20/21, decreased sensation of right foot and poor circulation of right foot ?? Last microalbumin test: 12/05/21 UACR 46 ?? Last lipid profile: 12/05/21 TC 98; TG 187; HDL 31; LDL 41 Positive colorectal cancer screening using Colog uard test 06/10/2022 Assessment & Plan (09/19/2024 6:26 AM EDT): 05/15/22 Positive Cologuard - Pt declines further evaluation with colonoscopy or other modalities. Assessment & Plan (12/10/2022 2:16 PM EDT): 05/15/22 Positive Cologuard - Pt declines further evaluation with colonoscopy or other modalities. History of depression 06/05/2022 ASCUS with positive high risk HPV cervical 06/10 Overview (06/10/2022): 06/10/2020 Positive E6/E7, negative 16, 18/45 Assessment & Plan (12/10/2022 1:46 PM EDT): ?? Followed by [facility] ?? 05/15/18 Colposcopy with Bx. Cytology report OMAR-I. ?? PAP on 06/09/19 - LSIL with positive high-risk HPV ?? PAP on 06/10/2020 - ASCUS with positive high-risk HPV (Positive E6/E7, negative 16, 18/45) ?? 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 Assessment & Plan (06/10/2022 12:21 PM EST): ?? Followed by [facility] [facility] ?? 05/15/18 Colposcopy with Bx. Cytology report OMAR-I. ?? PAP on 06/09/19 - LSIL with positive high-risk HPV ?? PAP on 06/10/2020 - ASCUS with positive high-risk HPV (Positive E6/E7, negative 16, 18/45) ?? 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 Cervical intraepithelial neoplasia grade 1 06/30 Vitamin D deficiency 12/09/2017 Osteoarthritis 08/06/2016 Ischemic heart disease 11/24/2015 Assessment & Plan (09/19/2024 6:22 AM EDT): - Followed by, Dr. Baltazar, [facility] Cardiology, patient needs to reschedule an appointment. - Last echo on 07/12/20 LVEF 60-65% - 12/09/18 venous study - gross R GSV insufficiency, segmental L GSV incompetence - 12/09/18 LOUIE - no arterial disease - 01/14/19 Normal LV systolic fxn with EF 55-60%, impaired relaxation, mild LA enlargement - Continue current medications, ACEI, BB, and ASA - Work on risk factor management by lifestyle modifications, especially smoking cessation Assessment & Plan (07/06/2024 5:16 AM EST): - Followed by, Dr. Baltazar, [facility] Card[facility], upcoming appt - Last echo on 07/12/20 LVEF 60-65% - 12/09/18 venous study - gross R GSV insufficiency, segmental L GSV incompetence - 12/09/18 LOUIE - no arterial disease - 01/14/19 Normal LV systolic fxn with EF 55-60%, impaired relaxation, mild LA enlargement - Continue current medications, ACEI, BB, and ASA - Work on risk factor management by lifestyle modifications, especially smoking cessation Assessment & Plan (02/03/2024 11:37 AM EDT): Followed by, Dr. Baltazar, [facility] Card[facility], last appt on 07/26/22 Last echo on 07/12/20 LVEF 60-65% 12/09/18 venous study - gross R GSV insufficiency, segmental L GSV incompetence 12/09/18 LOUIE - no arterial disease 01/14/19 Normal LV systolic fxn with EF 55-60%, impaired relaxation, mild LA enlargement Continue current medications, ACEI, BB, and ASA Work on risk factor management by lifestyle modifications, especially smoking cessation Assessment & Plan (06/20/2023 5:31 AM EST): ?? Followed by, Dr. Baltazar, [facility] Card[facility], last appt on 07/26/22 ?? Last echo on 07/12/20 LVEF 60-65% ?? 12/09/18 venous study - gross R GSV insufficiency, segmental L GSV incompetence ?? 12/09/18 LOUIE - no arterial disease ?? 01/14/19 Normal LV systolic fxn with EF 55-60%, impaired relaxation, mild LA enlargement ?? Continue current medications, ACEI, BB, and ASA ?? Work on risk factor management by lifestyle modifications, especially smoking cessation Assessment & Plan (03/12/2023 12:34 PM EDT): ?? Followed by, Dr. Baltazar, [facility], last appt on 07/26/22 ?? Last echo on 07/12/20 LVEF 60-65% ?? 12/09/18 venous study - gross R GSV insufficiency, segmental L GSV incompetence ?? 12/09/18 LOUIE - no arterial disease ?? 01/14/19 Normal LV systolic fxn with EF 55-60%, impaired relaxation, mild LA enlargement ?? Continue current medications, ACEI, BB, and ASA ?? Work on risk factor management by lifestyle modifications, especially smoking cessation Assessment & Plan (12/18/2022 9:14 AM EDT): ?? Followed by, Dr. Baltazar, [facility] Card[facility], last appt on 07/26/22 ?? Last echo on 07/12/20 LVEF 60-65% ?? 12/09/18 venous study - gross R GSV insufficiency, segmental L GSV incompetence ?? 12/09/18 LOUIE - no arterial disease ?? 01/14/19 Normal LV systolic fxn with EF 55-60%, impaired relaxation, mild LA enlargement ?? Continue current medications, ACEI, BB, and ASA ?? Work on risk factor management by lifestyle modifications, especially smoking cessation Assessment & Plan (06/15/2022 10:21 AM EST): ? ? Followed by, Dr. Baltazar, [facility] Card[facility], last appt on 07/27/21 ? ? Last echo on 07/12/20 LVEF 60-65% ? ? 12/09/18 venous study - gross R GSV insufficiency, segmental L GSV incompetence ? ? 12/09/18 LOUIE - no arterial disease ? ? 01/14/19 Normal LV systolic fxn with EF 55-60%, impaired relaxation, mild LA enlargement ? ? Continue current medications, ACEI, BB, and ASA ? ? Work on risk factor management by lifestyle modifications, especially smoking cessation Assessment & Plan (06/10/2022 12:15 PM EST): ?? Followed by, Dr. Baltazar, [facility] Card[facility], last appt on 07/27/21 ?? Last [...] management by lifestyle modifications, especially smoking cessation Essential hypertension 05/24/2015 Assessment & Plan (09/15/2024 9:02 AM EDT): - Goal BP < 140/90 per JNC-8 guideline, Goal SBP < 130 per ACC/AHA guideline. - BP not at goal today - Renal artery doppler in Mar 2014, left renal artery < 60% stenosis. - Continue clonidine 0.2 mg bid. - Continue lisinopril 40 mg daily. - Continue amlodipine 10 mg daily. - Continue metoprolol tartrate 75 mg bid. - Importance of low-sodium diet and regular moderate physical activity discussed. - Work on smoking cessation - Referred to CDTM , patient missed follow up appointments. - Starting SGLT2 I again, in hope for BP control benefit Assessment & Plan (07/06/2024 5:11 AM EST): - Goal BP < 140/90 per JNC-8 guideline, Goal SBP < 130 per ACC/AHA guideline. - BP not at goal today - Renal artery doppler in Mar 2014, left renal artery < 60% stenosis. - Continue clonidine 0.2 mg bid. - Continue lisinopril 40 mg daily. - Continue amlodipine 10 mg daily. - Continue metoprolol tartrate 75 mg bid. - Importance of low-sodium diet and regular moderate physical activity discussed. - Work on smoking cessation - Referred to [facility] , patient missed follow up appointments. - Starting SGLT2 I again, in hope for BP control benefit Assessment & Plan (02/03/2024 11:37 AM EDT): Goal BP < 140/90 per JNC-8 guideline, Goal SBP < 130 per ACC/AHA guideline. BP not at goal today Renal artery doppler in Mar 2014, left renal artery < 60% stenosis. Continue clonidine 0.2 mg bid. Continue lisinopril 40 mg daily. Continue amlodipine 10 mg daily. Increase metoprolol tartrate 75 mg bid. Importance of low-sodium diet and regular moderate physical activity discussed. Work on smoking cessation CDTM referral Assessment & Plan (06/20/2023 5:32 AM EST): ? ? Goal BP < 140/90 per JNC-8 guideline, Goal SBP < 130 per ACC/AHA guideline. ? ? BP not at goal today ? ? Renal artery doppler in Mar 2014, left renal artery < 60% stenosis. ? ? Continue clonidine 0.2 mg bid. ? ? Continue lisinopril 40 mg daily (caution with renal artery stenosis; renal function is normal) ? ? Continue amlodipine 10 mg daily. ? ? Continue metoprolol tartrate 75 mg bid. ? ? Importance of low-sodium diet and regular moderate physical activity discussed. ? ? Work on smoking cessation ? ? CDTM with Pharmacist on 10/29/22. BP elevated at home with 172/81, HR 60. According to Pharmacist, patient seems to take Clonidine more than prescribed and she has not been taking other medications as prescribed. ? ? Follow up in 3 mo or sooner prn Assessment & Plan (04/03/2023 4:11 AM EDT): ? ? Goal BP < 140/90 per JNC-8 guideline, Goal SBP < 130 per ACC/AHA guideline. ? ? BP not at goal today ? ? Renal artery doppler in Mar 2014, left renal artery < 60% stenosis. ? ? Continue clonidine 0.2 mg bid. ? ? Continue lisinopril 40 mg daily (caution with renal artery stenosis; renal function is normal) ? ? Continue amlodipine 10 mg daily. ? ? Continue metoprolol tartrate 75 mg bid. ? ? Importance of low-sodium diet and regular moderate physical activity discussed. ? ? Work on smoking cessation ? ? CDTM with Pharmacist on 10/29/22. BP elevated at home with 172/81, HR 60. According to Pharmacist, patient seems to take Clonidine more than prescribed and she has not been taking other medications as prescribed. We can consider starting some medications at lower dose and adjust accordingly. Pt seems to like clonidine, so we can introduce ACEI or ARB, BB (Hx [place]), and amlodipine. ? ? Follow up in 3 mo or sooner prn Assessment & Plan (12/18/2022 9:13 AM EDT): ? ? Goal BP < 140/90 per JNC-8 guideline, Goal SBP < 130 per ACC/AHA guideline. ? ? BP not at goal today ? ? Renal artery doppler in Mar 2014, left renal artery < 60% stenosis. ? ? Continue clonidine 0.2 mg bid. ? Continue lisinopril 40 mg daily. ? ? Continue amlodipine 10 mg daily. ? ? Continue metoprolol tartrate 75 mg bid. ? ? Importance of low-sodium diet and regular moderate physical activity discussed. ? ? Work on smoking cessation ? ? CDTM with Pharmacist on 10/29/22. BP elevated at home with 172/81, HR 60. According to Pharmacist, patient seems to take Clonidine more than prescribed and she has not been taking other medications as prescribed. We can consider starting some medications at lower dose and adjust accordingly. Pt seems to like clonidine, so we can introduce ACEI or ARB, BB (Hx [place]), and amlodipine. ? ? Follow up in 3 mo or sooner prn Assessment & Plan (06/15/2022 10:05 AM EST): ? ? Goal BP < 140/90 per JNC-8 guideline, Goal SBP < 130 per ACC/AHA guideline. ? ? BP not at goal today ? ? Renal artery doppler in Mar 2014, left renal artery < 60% stenosis. ? ? Continue clonidine 0.2 mg bid. ? ? Continue lisinopril 40 mg daily. ? ? Continue amlodipine 10 mg daily. ? ? Increase metoprolol tartrate 75 mg bid. ? ? Importance of low-sodium diet and regular moderate physical activity discussed. ? ? Work on smoking cessation ? ? CDTM referral Assessment & Plan (06/10/2022 12:16 PM EST): ?? Goal BP < 140/90 per JNC-8 [...] activity discussed. ?? Work on smoking cessation History of myocardial infarction 08/30/2014 Dyslipidemia 07/01/1958 Assessment & Plan (09/19/2024 6:27 AM EDT): - Current medication: Rosuvastatin 10 mg at bedtime - Lipid profile: 02/03/24 - Hx simvastatin intolerance - Pt had not been taking it as prescribed, yet has low LDL. Advised to improve adherence. - Continue working on lifestyle modifications Assessment & Plan (07/06/2024 5:15 AM EST): - Current medication: Rosuvastatin 10 mg at bedtime - Lipid profile: 02/03/24 - Hx simvastatin intolerance - Pt had not been taking it as prescribed, yet has low LDL. Advised to improve adherence. - Continue working on lifestyle modifications Assessment & Plan (02/03/2024 11:39 AM EDT): Current medication: Rosuvastatin 10 mg at bedtime Lipid profile: 01/11/23 - TC 99 ; TG 124 ; HDL 32 ; LDL 39 Hx simvastatin intolerance Pt had not been taking it as prescribed, yet has low LDL. Advised to improve adherence. Continue working on lifestyle modifications Assessment & Plan (06/20/2023 5:33 AM EST): ?? Current medication: Rosuvastatin 10 mg at bedtime ?? Lipid profile: 01/11/23 - TC 99 ; TG 124 ; HDL 32 ; LDL 39 ?? Hx simvastatin intolerance ?? Pt had not been taking it as prescribed, yet has low LDL. Advised to improve adherence. ?? Continue working on lifestyle modifications Assessment & Plan (03/12/2023 12:33 PM EDT): ?? Current medication: Rosuvastatin 10 mg at bedtime ?? Lipid profile: 01/11/23 - TC 99 ; TG 124 ; HDL 32 ; LDL 39 ?? Hx simvastatin intolerance ?? Pt had not been taking it as prescribed, yet has low LDL. Advised to improve adherence. ?? Continue working on lifestyle modifications Assessment & Plan (12/10/2022 1:44 PM EDT): ?? Current medication: Rosuvastatin 10 mg at bedtime ?? Lipid profile: 12/05/21 TC 98; TG 187; HDL 31; LDL 41 ?? Hx simvastatin intolerance ?? Pt had not been taking it as prescribed, yet has low LDL. Advised to improve adherence. ?? Continue working on lifestyle modifications Assessment & Plan (06/10/2022 12:26 PM EST): ?? Current medication: Rosuvastatin 10 mg at bedtime ?? Lipid profile: 12/05/21 TC 98; TG 187; HDL 31; LDL 41 ?? Hx simvastatin intolerance ?? Pt had not been taking it as prescribed, yet has low LDL. Advised to improve adherence. ?? Continue working on lifestyle modifications Resolved Problems Problem Noted Date Diagnosed Date Resolved Date Diabetes mellitus type 2, uncontrolled 05/24/2015 06/10/2022 Encounters Date Type Department Care Team Description 10/28/2024 Refill [facility] [address] [place] [address] Aby Ragland MD Essential hypertension 09/21/[address] [address] Aby Ragland MD Care Coordination 09/15/2024 1:30 PM EDT Office Visit [address] [address] Aby Ragland MD Type 2 diabetes mellitus with hyperglycemia, without long-term current use of insulin ([facility]) (Primary Dx); Tobacco dependence; Essential hypertension; Ischemic heart disease; Primary osteoarthritis involving multiple joints; Osteopenia of lumbar spine; Positive colorectal cancer screening using Cologuard test; Dyslipidemia; Dietary counseling; Exercise counseling; Overweight 09/15/2024 Travel 09/10/2024 Telephone [facility] [address] [place] [address] Sheryl Ballard MA chart prep from Last 3 Months Immunizations Name Administration Dates Next Due Hep A, Adult 02/03/2024 Hep B, adult 10/29/2016,08/06/2016,02/28/2016 Influenza High-dose Quadriva lent Preservative Free 03/12/2023,03/26/2022 Influenza injectable quadriv alent preservative free 07/15/2018 Influenza, High Dose Seasona l, Preservative Free 04/27/2019 Influenza, Split (incl. chato fied surface antigen) 05/15/2013 Influenza, seasonal, injecta ble, preservative free 06/29/2024 Moderna Covid-19 Vaccine 12+ 09/23/2020,08/26/19 21 Pneumococcal Conjugate PCV 13 03/14/2015 Pneumococcal Polysaccharide PPSV23 08/26/2012, TD (adult), 2 Lf tetanus tox oid, preservative free, adsorbed 11/20/2021,12/03/1996 Tdap 11/14/2011 Zoster, Recombinant 03/01/2021,11/09/2020 Zoster, live 08/06/2016 Family History Medical History Relation Name Comments Diabetes Brother Hypertension Brother Hypertension Sister Relation Name Status Comments Brother Sister Social History Tobacco Use Types Packs/Day Years Used Date Smoking Tobacco: Every Day Cigarettes 0.3 5.4 Started: 2019 Passive Smoke Exposure: Current Smokeless Tobacco: Never Tobacco Cessation:Ready to Q uit: Not Asked; Counseling Given: Not Answered Alcohol Use Standard Drinks/Week Comments Not Currently [...] the past 12 months, has t he electric, gas, oil or water company threatened to shut off services in your [...] Orientation Straight 04/30/2022 10 :14 AM EDT Last Filed Vital Signs Vital Sign Reading Time Taken Comments Blood Pressure 140/70 09/15/2024 1:53 PM EDT Pulse 60 09/15/2024 1:53 PM EDT Temperature 35.9 ??C (96.6 ??F) 06/29/2024 1:12 PM ES T Respiratory Rate 24 09/15/2024 1:53 PM EDT Oxygen Saturation 96% 06/29/2024 1:12 PM EST Inhaled Oxygen Concentration - - Weight 64.9 kg (143 lb) 09/15/2024 1:53 PM EDT Height 160 cm (5' 3 ) 09/15/2024 1:53 PM EDT Body Mass Index 25.33 09/15/2024 1:53 PM EDT Plan of Treatment Upcoming Encounters Date Type Department Care Team (Late st Contact Info) Description 12/08/2024 2:15 PM EDT Office Visit [facility] [address] [place] [address] Aby Ragland MD [address] [place] [address] Health Maintenance Due Date Last Done Comments RSV Patients and Patients Aged 60 years or older (1 - 1-dose 75+ series) 2021 COVID-19 Vaccine ( season) 2024 09/23/2020, 08/26/2020 Diabetes: Hemoglobin A1C 12/16/2024 025, 06/29/2024, 02/03/2024, Additional history exists Alcohol/Substance Use Screening 02/02/2025 02/03/2024 SDOH Screening 02/02/2025 02/03/2024 Depression Screening 06/29/2025 06/29/2024, 06/29/20 24 Diabetes: Urine Protein Screening 06/29/2025 06/29/2024, 02/03/2024, 01/11/2023, Additional history exists Lipid Panel 06/29/2025 06/29/2024, 080 10/2023, 01/11/2023, Additional history exists Diabetes: Foot Exam 09/15/2025 09/15/2024, 09/15/2024, 09/15/2024, Additional history exists Tobacco Screening 09/19/2025 09/19/2024 Eye Exam 11/03/2025 11/04/2023, 050 11/2023, 11/04/2023, Additional history exists Mammogram 11/12/2025 11/13/2023, 090 12/2021, 08/28/2018 DTaP/Tdap/Td Vaccines (3 - Td or Tdap) 11/21/2031 11/20/2021, 11/14/2011, 12/03/1996 Pneumococcal Vaccine: 50+ Years Completed 03/14/2015, 08/26/2012, 07/09/2000 Hepatitis B Vaccines Completed 10/29/2016, 08/06/2016, 02/28/2016 Hepatitis C Screening Completed 06/25/2019 Zoster Vaccines Completed 03/01/2021, 10/29, 08/06/2016 Hepatitis A Vaccines Aged Out 02/03/2024 No long er eligible based on patient's age to complete this topic Influenza Vaccine Completed 06/29/2024, , 03/26/2022, Additional history exists HIB Vaccines Aged Out No longer eligi ble based on patient's age to complete this topic HPV Vaccines Aged Out No longer eligi ble based on patient's age to complete this topic IPV Vaccines Aged Out No longer eligi ble based on patient's age to complete this topic Meningococcal Vaccine Aged Out No sushma jay eligible based on patient's age to complete this topic RSV under 20 months Aged Out No longe r eligible based on patient's age to complete this topic Rotavirus Vaccines Aged Out No longer eligible based on patient's age to complete this topic Goals Goal Patient Goal Type Associated Problems Recent Progress Patient-Stated? Author Blood Pressure < 140/90 Blood Pressure 140/70( 025 1:53 PM EDT) No Nando Baig PharmD Procedures Procedure Name Priority Date/Time Associated Diagnosis Comments POCT GLYCOSYLATED HEMOGLOBIN (HGB A1C) Routine 09/15/2024 1:54 PM EDT Type 2 diabetes mellitus with hyperglycemia, without long-term current use of insulin (CMS/HCC) POCT GLUCOSE Routine 09/15/2024 1:54 PM EDT Type 2 diabetes mellitus with hyperglycemia, without long-term current use of insulin (CMS/[facility]) ALBUMIN, RANDOM URINE W/CREATININE Routine 06/29/2024 2:03 PM EST Type 2 diabetes mellitus with hyperglycemia, without long-term current use of insulin (CMS/[facility]) Essential hypertension LIPID PANEL WITH REFLEX TO DIRECT LDL Routine 06/29/2024 2:03 PM EST Type 2 diabetes mellitus with hyperglycemia, without long-term current use of insulin ([facility]) Dyslipidemia BI MAMMOGRAM SCREENING TOMOSYNTHESIS BILATERAL Routine 11/13/2023 1:18 PM EDT ELLEN HISTORICAL HEPATITIS C ANTIBODY RFLX Routine 06/25/2019 8:50 AM EST from Last 3 Months or Most Recently Relevant to Health Maintenance Results * (ABNORMAL) POCT glycosylated hemoglobin (Hgb A1c) (09/15/2024 1:54 PM EDT) Hemoglobin A1C 9.0(A) 4.0 - 6.0 % QC Media Lot # [id number] Lot# Expiration Date Blood Capillary blood specimen / Unknown 09/15/2024 1:54 PM EDT Aby Ragland MD POINT OF CARE TEST ENTER/EDIT OR DERABLES Final Result * POCT glucose manually resulted (09/15/2024 1:54 PM EDT) Glucose Blood, POC 194 60 - 200 mg/dL QC Media Lot # [id number] Lot# Expiration Date [id number] Blood Capillary blood specimen / Unknown 09/15/2024 1:54 PM EDT Aby Ragland MD POINT OF CARE TEST ENTER/EDIT OR DERABLES Final Result * (ABNORMAL) Lipid Panel with Reflex to Direct LDL (06/29/2024 2:03 PM EST) Triglycerides 151(H) <150 mg/dL [facility] Comment:Desirable Triglyceri de: less than 150 mg/dLBorderline High Triglyceride 150-199 mg/dLHigh Triglyceride: 200-499 mg/dLVery High Triglyceride: greater than or equal to 5OO mg/dL Cholesterol 95 <200 mg/dL [facility] Comment:Desirable Cholestero l: less than 200 mg/dLBorderline High Cholesterol: 200-239 mg/dLHigh Cholesterol: greater than 239 mg/dL LDL Cholesterol Calculated 37 <100 mg/dL [facility] Comment:Desirable LDL: less than 100 mg/dLNear Optimal/Above Optimal LDL: 110- 129 mg/dLBorderline High LDL: 130-159 mg/dLHigh LDL: 160-189 mg/dLVery High LDL: greater than or equal to 190 mg/dL HDL Cholesterol 28(L) >40 mg/dL [facility] Comment:Desirable HDL: great er than 40 mg/dL Note: This HDL assay may give artificially low results in patients with liver disease. Blood 06/29/2024 2:03 PM EST 06/29/2024 4:11 PM EST us Aby Ragland MD LAB BLOOD ORDERABLES Final Resul t [facility] [address] [place] [phone] * (ABNORMAL) Albumin, Random Urine W/Creatinine (06/29/2024 2:03 PM EST) Creatinine, Urine 68.96 mg/dL [facility] Microalbumin Urine 210.0 mg/L H [facility] Microalbum Creatinine Ratio Ur 304.5(H) <30 ug/mg cr [facility] Comment:Albumin/Creatinine R atio Reference Ranges: Normal: < 30 ug/mg creatinine Microalbuminuria: 30 - 300 ug/mg creatinineClinical Albuminuria: > 300 ug/mg creatinine Urine 06/29/2024 2:03 PM EST 06/29/2024 5:29 PM EST us Aby Ragland MD LAB URINE ORDERABLES Final Resul t Performing Organization Address City/State/[facility] Co de Phone Number [facility] [address] [facility] [place] [address] [phone] * BI Mammogram Screening Tomosynthesis Bilateral (11/13/2023 1:18 PM EDT) Anatomical Region Laterality Modality Breast Bilateral Mammography 11/13/2023 1:18 PM EDT Narrative 11/26/2023 10:50 AM EDT ? [facility] ? [address] ?[place] [address] ? Mammography Report ? Signed ? Patient: Joceline Hogue ?MR#: [id number] ?? [id number] ? : 1945 ?Acct:[id number] ? Age/Sex: 78 / F ?ADM Date: 05/15/24 ? Loc: HO.MAMMO ? Attending Dr: Aby Ragland MD ? Ordering Physician: Aby Ragland MD ?Results: 1Negative ? Date of Service: 11/13/23 ?Follow Up: 1 Year From Orig ?? inal Mammogram ? Procedure(s): MM tomosynthesis screening BI ?? Accession Number(s): [id number] ? cc: Aby Ragland MD ? EXAMINATION: ?? MM SCREENING DIGITAL BREAST TOMOSYNTHESIS, BILATERAL ? CLINICAL INFORMATION: ? Screening. Asymptomatic. ? COMPARISON: ?? Mammography: This study is compared with prior exams dating back to ?? 2018. ? TECHNIQUE: ?? Digital breast tomosynthesis is performed in both the craniocaudal and ?? mediolateral oblique views along with computer-aided detection (CAD). ?? Synthesized 2D images are generated from the tomosynthesis. ? FINDINGS: ?? There are scattered areas of fibroglandular density (ACR BI-RADS breast ?? composition Category b). ? There are no significant masses, abnormal calcifications, or other ?? abnormalities. ? MM/MM tomosynthesis screening BI ?? IMPRESSION: ?? No mammographic evidence of malignancy. ? ASSESSMENT: ? BI-RADS BI-RADS 1 - Negative ? RECOMMENDATION: ?? Routine annual mammography screening. ? 1 year F/U ? This examination should not preclude the clinical evaluation of a ?? suspicious palpable abnormality. ? This patient's information was entered into a reminder system with a ?? target due date for their next mammogram. ? Dictated By: ?Temi Sosa MD ? Signed By: ?<Electronically signed by Temi oSsa MD in OV> ? 11/26/231045 ? DD/ ? TD/TT: ? Machine Lay Out Worker: ? Procedure Note Blanca Purdy - 11/26/2023 [facility] [address] [place] [address] Dr. Ko, [place] [address] Mammography Report Signed Patient: Joceline HogueMR#: [id number] : 7Acct:[id number] Age/Sex: 78 / FADM Date: 11/13/23 Loc: HO.MAMMO Attending Dr: Aby Ragland MD Ordering Physician: Aby Ragland MDResults: 1Negative Date of Service: 11/13/23Follow Up: 1 Year From Orig inal Mammogram Procedure(s): MM tomosynthesis screening BI Accession Number(s): [id number] cc: Aby Ragland MD EXAMINATION: MM SCREENING DIGITAL BREAST TOMOSYNTHESIS, BILATERAL CLINICAL INFORMATION: Screening. Asymptomatic. COMPARISON: Mammography: This study is compared with prior exams dating back to 2019. TECHNIQUE: Digital breast tomosynthesis is performed in both the craniocaudal and mediolateral oblique views along with computer-aided detection (CAD). Synthesized 2D images are generated from the tomosynthesis. FINDINGS: There are scattered areas of fibroglandular density (ACR BI-RADS breast composition Category b). There are no significant masses, abnormal calcifications, or other abnormalities. MM/MM tomosynthesis screening BI IMPRESSION: No mammographic evidence of malignancy. ASSESSMENT: BI-RADS BI-RADS 1 - Negative RECOMMENDATION: Routine annual mammography screening. 1 year F/U This examination should not preclude the clinical evaluation of a suspicious palpable abnormality. This patient's information was entered into a reminder system with a target due date for their next mammogram. Dictated By: Temi Sosa MD Signed By: <Electronically signed by Temi Sosa MD in OV> 11/26/23 1046 DD/ 1318 TD/TT: Machine Lay Out Worker: Aby Ragland MD IM BI PROCEDURES Final Result * HEPATITIS C ANTIBODY RFLX (06/25/2019 8:50 AM EST) HEPATITIS C ANTIBODY NONREACTIVE NONREACTIVE [facility] Comment: Antibodies to HCV not detected; does not exclude early acute HCV infection. 06/25/2019 8:50 AM EST Aby Ragland MD HISTORICAL/NON ORDERABLE LABS Fi nal Result [facility] [address] from Last 3 Months or Most Recently Relevant to Health Maintenance Insurance [facility] SKILLED NURSING OPTIONS (O D-SNP) [employer] [id number] Care Teams Die Cutter Operator Relationship Specialty Start Date End Date Aby Ragland MD [address] [place] [address] PCP - General Family Medicine 01/15/14 Nando Baig, PharmD [address] [place] [address] Pharmacist Internal Medicine 07/24/22
--- OUTSIDE RECORDS SUMMARY | 2024-11-10 12:46 | XMS_ITS | Encounter Summary ---
Author Organization [employer] Address [address] [facility] 7t [place] [address] Care Team Providers Care Joiner Name Role Phone Aby Ragland MD Primary Care Provider [phone] Nando Baig PharmD Unavailable [phone] Reason for Visit * Reason Comments Med Refill Encounter Details Date Type Department Care Team (Late st Contact Info) Description 01/19/2023 Refill [facility] [address] [place], [place] [phone] Andres Mancuso MD [address] [place], [place] [phone] Primary osteoarthritis involving multiple joints Social History [...] Description 12/08/2024 2:15 PM EDT Office Visit [facility] [address] [place], [place] [phone] Aby Ragland MD [address] [place], [place] [phone] documented as of this encounter Goals Goal Patient Goal Type Associated Problems Recent Progress Patient-Stated? Author Blood Pressure < 140/90 Blood Pressure 140/70( 025 1:53 PM EDT) No Nando Baig, PharmRenae documented as of this encounter Visit Diagnoses Diagnosis Primary osteoarthritis involving multiple joints documented in this encounter Care Teams Joiner Relationship Specialty Start Date End Date Aby Ragland MD [address] [place] [address] PCP - General Family Medicine 01/15/14 Nando Baig, PharmD [address] [place] [address] Pharmacist Internal Medicine 07/24/22 documented as of this encounter
--- OUTSIDE RECORDS SUMMARY | 2024-11-10 12:46 | XMS_ITS | Encounter Summary ---
Author Organization [facility] Address [address] [facility] 7t [place] [address] Care Team Providers Care Aws Architect Name Role Phone Aby Ragland MD Primary Care Provider [phone] Nando Baig PharmD Unavailable [phone] Encounter Details Date Type Department Care Team (Late st Contact Info) Description 06/05/2022 Abstract [facility] [address] [place] [phone] ProviderSanjeev MD Social History Tobacco Use Types Packs/Day Years [...] 2:15 PM EDT Office Visit [facility] [address] [place] [address] Aby Ragland MD [address] [place] [phone] documented as of this encounter Visit Diagnoses Not on filedocumented in this encounter Care Teams Aws Architect Relationship Specialty Start Date End Date Aby Ragland MD [address] [place] [phone] PCP - General Family Medicine 01/15/14 BaigNando PharmD [address] [place] [phone] Pharmacist Internal Medicine 07/24/22 documented as of this encounter
--- OUTSIDE RECORDS SUMMARY | 2024-11-10 12:46 | XMS_ITS | Encounter Summary ---
Author Organization [employer] Address [address] [facility] 7t [place] [address] Care Team Providers Care Oracle Application Consultant Name Role Phone Aby Ragland MD Primary Care Provider [phone] Nando Baig PharmD Unavailable [phone] Reason for Visit * Reason Comments Med Refill Encounter Details Date Type Department Care Team (Late st Contact Info) Description 09/09/2022 Refill [facility] [address] [place], [place] [phone] Aby Ragland MD [address] [place], [place] [phone] Primary osteoarthritis involving multiple joints Social History Tobacco Use Types Packs/Day Years Used Date Smoking Tobacco: Every Day Cigarettes 0.3 5.4 Started: 2020 Smokeless Tobacco: Never Alcohol Use Standard Drinks/Week [...] Description 12/08/2024 2:15 PM EDT Office Visit [facility] [address] [place], [place] [phone] Aby Ragland MD [address] [place], [place] [phone] documented as of this encounter Goals Goal Patient Goal Type Associated Problems Recent Progress Patient-Stated? Author Blood Pressure < 140/90 Blood Pressure 140/70( 025 1:53 PM EDT) No Nando Baig, PharmRenae documented as of this encounter Visit Diagnoses Diagnosis Primary osteoarthritis involving multiple joints documented in this encounter Care Teams Oracle Application Consultant Relationship Specialty Start Date End Date Aby Ragland MD [address] [place] [address] PCP - General Family Medicine 01/15/14 Nando Baig, PharmD [address] [place] [address] Pharmacist Internal Medicine 07/24/22 documented as of this encounter
== END 2024-11-10 11:56 | disposition home or self-care (01) ==
LOC: HO.HCS 11:17
PROVIDERS: PCP Family Medicine; Visit Provider Internal Medicine
DX: I25.10 Atherosclerotic heart disease of native coronary artery without angina pectoris (principal); I25.2 Old myocardial infarction; E11.8 Type 2 diabetes mellitus with unspecified complications; I10 Essential (primary) hypertension; E78.5 Hyperlipidemia, unspecified
CPT/HCPCS: 93010; 99214; G2211

== ENCOUNTER → 2024-11-10 11:16 | Outpatient (BNVA) | payer OTHER, SELFPAY | PROVIDERS: PCP Family Medicine; Visit Provider Internal Medicine | DX: I25.10 Atherosclerotic heart disease of native coronary artery without angina pectoris (principal); I25.2 Old myocardial infarction; I10 Essential (primary) hypertension; E11.8 Type 2 diabetes mellitus with unspecified complications; E78.5 Hyperlipidemia, unspecified; R00.1 Bradycardia, unspecified; I44.4 Left anterior fascicular block; R94.31 Abnormal electrocardiogram [ECG] [EKG] | CPT/HCPCS: 93005; 99212 ==

== ENCOUNTER 2024-12-09 13:15 | Outpatient (REF) | payer OTHER, SELFPAY ==
--- OUTSIDE RECORDS SUMMARY | 2024-12-09 14:57 | XMS_ITS | Encounter Summary ---
Author Organization [employer] Address [address] [facility] 7t [place] [address] Care Team Providers Care Irrigation Pump Installer Name Role Phone Aby Ragland MD Primary Care Provider [phone] Nando Baig PharmD Unavailable [phone] Encounter Details Date Type Department Care Team (Late st Contact Info) Description 06/05/[address] [facility] [address] [place] [address] ProviderSanjeev MD Social History Tobacco Use Types Packs/Day Years Used Date Smoking Tobacco: Never Assessed Comments Unknown Sex and Gender Information Value Date Recorded Sex Assigned at Female 04/30/2022 10:14 AM EDT Legal Sex Female 10:14 AM EDT Gender Identity Female 04/30/2022 10:14 AM EDT Sexual Orientation Straight 04/30/2022 10 :14 AM EDT documented as of this encounter Plan of Treatment Not on file documented as of this encounter Visit Diagnoses Not on filedocumented in this encounter Care Teams Irrigation Pump Installer Relationship Specialty Start Date End Date Aby Ragland MD [address] [place] [address] PCP - General Family Medicine 01/15/14 Nando Baig, PharmD [address] [place] [address] [phone] Pharmacist Internal Medicine 07/24/22 documented as of this encounter
[2024-12-09 15:59] LABS: MANUAL DIFF FLAG NO
[2024-12-09 16:03] LABS: Appearance Urine Clear; Color Urine Yellow; Glucose Urine UA >=1000 mg/dL (Negative); Leukocyte Esterase Urine Negative (Negative); Nitrite Urine Negative (Negative); PH 5.5 (5.0-9.0); Specific Gravity - Urine >= 1.030 (1.005-1.025); UMIC TRIGGER UACC YES; Urine Blood Negative (Negative); Urine Ketones Negative (Negative); Urine Protein Negative (Neg-Trace)
[2024-12-09 16:08] LABS: Basophils Absolute Auto 0.1 X10*3/uL (0.0-0.2); Basophils Percent Auto 0.6 % (0-2); Eosinophils Absolute Auto 0.2 X10*3/uL (0.0-0.4); Eosinophils Percent Auto 2.1 % (0-4); Hematocrit 40.7 % (37.0-47.0); Hemoglobin 12.6 g/dl (12.0-16.0); Imm Gran Abs Auto 0.04 X10*3/uL (0.00-0.03); Imm Gran Pct Auto 0.4 % (0.0-0.4); Lymphocytes Absolute Auto 2.1 X10*3/uL (1.2-4.9); Lymphocytes Percent Auto 22.9 % (20-40); Mean Corpuscular Volume 87.2 fL (80.0-98.0); Mean Platelet Volume 10.5 fL (9.4-12.3); Monocytes Absolute Auto 0.7 X10*3/uL (0.1-1.2); Monocytes Percent Auto 7.4 % (2-11); Neutrophils Percent Auto 66.6 % (45-73); Platelet Count 286 X10*3/uL (160-400); Red Blood Count 4.67 X10*6/uL (4.20-5.50); Red Cell Distribution Width 13.2 % (11.0-16.0)
[2024-12-09 16:09] LABS: Bacteria Urine None Seen (None Seen); Hyaline Casts Urine 0-2 /LPF (0-2); RBC Urine 0-2 /HPF (0-2); Squamous Epithelial Cell Urine 0-2 /HPF (0-2); WBC Urine 0-5 /HPF (0-5)
[2024-12-09 16:18] LABS: Alanine Aminotransferase 26 U/L (0-31); Alkaline Phosphatase 72 U/L (39-117); Anion Gap 11 (12-20); Aspartate Amino Transferase 32 U/L (5-31); Bilirubin Total 0.2 mg/dL (0.0-1.0); Blood Urea Nitrogen 25 mg/dL (9-16); C Reactive Protein 0.35 mg/dL (< or = 0.50); Calcium 9.3 mg/dL (8.4-10.2); Carbon Dioxide 28 mmol/L (22-29); Chloride 105 mmol/L (96-108); Estimated Glomerular Filt Rate 51; Glucose Random 186 mg/dL (60-115); Potassium 3.9 mmol/L (3.3-5.1); Sodium 140 mmol/L (135-145)
[2024-12-09 16:34] LABS: TSH reflex Free T4 1.13 uIU/mL (0.32-4.0)
[2024-12-09 17:04] LABS: Erythrocyte Sedimentation Rate 25 MM/HR (0-20)
== END 2024-12-09 13:16 | disposition home or self-care (01) ==
LOC: HO.HHCL 13:15
PROVIDERS: Visit Provider Family Medicine
DX: R63.4 Abnormal weight loss (principal)
CPT/HCPCS: 36415; 80053; 81001; 84443; 85025; 85652; 86140

== ENCOUNTER → 2024-12-10 13:03 | Outpatient (REF) | payer OTHER, SELFPAY ==
--- NOTE | 2024-12-10 13:05 | CA_ITS ---
Transthoracic Echocardiogram Patient (Last, First, Middle): Jcoeline Hogue, Gender: Female Date of : 1945 Age: 79 Procedure Date: 12/10/2024 Procedure Type: Transthoracic Echocardiogram Location: OP Height: 160.02 cm Weight: 63.5 kg BSA: 1.66 m2 Heart Rate: 55 bpm BP: 110 / 72 mmHg Plastic Manager: FLORENCIO MEHTA Referring MD: Michael Baltazar MD Accounts Clerk: Joe Ayala MD Symptoms: I25.10 - Atherosclerotic heart disease of [place] coronary artery without... Study Quality: Adequate ECG Rhythm: Bradycardia Conclusions: - 1. Normal LV ejection fraction of 60 65% with impaired relaxation filling pattern 2. Normal cardiac valvular Doppler 3. Mildly dilated ascending aorta at 3.7 cm 4. Normal RV systolic pressure 5. No gross pericardial effusion Findings Left Ventricle Normal left ventricular size, thickness, and systolic function. The visually estimated ejection fraction is between 60-65%. Spectral Doppler is indicative of an impaired relaxation filling pattern. E/E prime ratio is between 8 and 15 consistent with indeterminate filling pressures. Wall Motion Rest Echo Findings The basal inferior and basal inferoseptal segments are hypokinetic. All other scored wall segments showed normal motion. Right Ventricle Normal right ventricular cavity size and systolic function. Atria Both atria are normal in size. There is no evidence of interatrial shunt. Aortic Valve Normal aortic valve structure and function. There is no aortic valve stenosis. There is no aortic valve regurgitation. Mitral Valve There is mild anterior and posterior mitral leaflet thickening. There is mild mitral annular calcification. There is trace mitral valve regurgitation. There is no mitral valve stenosis. Pulmonic Valve The pulmonic valve was not well visualized. Tricuspid Valve Likely normal tricuspid valve structure and function. There is trace tricuspid valve regurgitation. The right ventricular systolic pressure is normal. The right ventricular systolic pressure is 12 mmHg. Normal right atrial pressure. There is no evidence of pulmonary hypertension. Great Vessels The pulmonary artery was not well visualized. There is mild dilatation of the ascending aorta measuring 3.70 cm. Venous The inferior vena cava is normal in size and collapses greater than 50% with inspiration. Pericardium/Pleural There is no evidence of pericardial effusion. Prior Study Comparison No significant change compared to prior study dated: 07/12/2020. Measurements 2D Linear Measurements IVSd: 0.98 0.6-0.9/0.6-1.0 cm LVIDd: 4.07 3.9-5.3/4.2-5.9 cm LVIDd Index: 2.45 2.4-3.2/2.2-3.1 cm/m2 LVIDs: 2.69 2.0-3.6 cm LVPWd: 1.06 0.7-1.1 cm LA Diam: 3.40 2.7-3.8/3.0-4.0 cm LAIDs Index: 2.05 1.5-2.3 cm/m2 LV Mass: 167.11 67-162/88-224 g LV Mass Index: 100.67 43-95/49-115 g/m2 LVOT Diam: 2.40 3.0+(-)1.3 cm 2D Systolic Function EF 4C: 59.90 >55% EF 2C: 68.10 >55% EF BiP: 63.70 >55% Mitral Valve MV Pk E: 0.61 MV PK A: 0.94 MV Decel Time: 342.00 E/A: 0.70 E'Lateral: 5.66 E'Medial: 4.13 E/E' Med: 14.80 E/E' Lat: 10.80 PHT: 100.00 MVA PHT: 2.20 Decel [place]: 1.79 Aortic Valve AoV Pk Yovany: 1.24 AoV Mn Yovany: 0.89 AoV VTI: 0.31 AoV Pk Grad: 6.00 Aov Mn Grad: 3.00 BUZZ Cont.VTI: 3.20 LVOT LVOT Pk Yovany: 0.89 LVOT Mn Yovany: 0.63 LVOT VTI: 0.22 LVOT Pk Grad: 3.00 LVOT Mn Grad: 2.00 LVOT Diam: 2.40 LVOT Area: 4.52 Diastolic Function MV Pk E: 0.61 MV Pk A: 0.94 E/A: 0.70 E'Medial: 4.13 E/E' Med: 14.80 E' Laterial: 5.66 E/E' Lat: 10.80 Right Ventricle TAPSE (mm): 19.10 TVS' Yovany: 8.70 Tricuspid Valve TR Pk Yovany: 1.52 TR Pk Grad: 9.00 RA Press: 3.00 RVSP: 12.00 Great Vessels Aorta Sinus of Valsalva: 3.40 2.0-3.5 cm Ao Asc: 3.70 2.1-3.4 cm Ao Arch: 2.80 Pulmonary Valve PV Pk Yovany: 0.80 Peak PV Grad: 3.00 Updated in Other Vendor System with Status of Final Joe Ayala MD electronically signed on 12/11/2024 2:56:25 PM with status of Final
== END ==
LOC: HO.CARD 13:03
PROVIDERS: PCP Family Medicine; Visit Provider Internal Medicine
DX: I25.10 Atherosclerotic heart disease of native coronary artery without angina pectoris (principal); I25.2 Old myocardial infarction
CPT/HCPCS: 93306

== ENCOUNTER → 2024-12-10 13:05 | Outpatient (BNV) | payer OTHER, SELFPAY | PROVIDERS: PCP Family Medicine; Visit Provider Internal Medicine Cardiovascular Disease | DX: I34.81 Nonrheumatic mitral (valve) annulus calcification (principal); I25.10 Atherosclerotic heart disease of native coronary artery without angina pectoris | CPT/HCPCS: 93306 ==